=== PATIENT | male | born 1945 | race Caucasian/White ===

== ENCOUNTER 2020-07-08 07:36 | Outpatient (REF) | payer MEDICARE, SELFPAY ==
[2020-07-08 09:37] LABS: OBS Int Ctl Valid YES; OBS1 NEG (NEG); OBS2 NEG (NEG); OBS3 NEG (NEG)
[2020-07-08 10:58] LABS: Leukocytes Stool Qualitative NEGATIVE (NEGATIVE)
== END 2020-07-08 07:37 | disposition home or self-care (01) ==
LOC: HO.LNP 07:36
PROVIDERS: Visit Provider Internal Medicine Gastroenterology
DX: R19.4 Change in bowel habit (principal)
CPT/HCPCS: 82270; 87045; 87046; 89055

== ENCOUNTER → 2020-08-04 13:28 | Outpatient (BNVA) | payer MEDICARE, OTHER, SELFPAY | PROVIDERS: PCP Internal Medicine; Visit Provider Internal Medicine Cardiovascular Disease | DX: I25.10 Atherosclerotic heart disease of native coronary artery without angina pectoris (principal); E78.5 Hyperlipidemia, unspecified; I10 Essential (primary) hypertension; R07.89 Other chest pain; Z79.02 Long term (current) use of antithrombotics/antiplatelets; Z79.899 Other long term (current) drug therapy; Z95.1 Presence of aortocoronary bypass graft | CPT/HCPCS: 93005; 99212 ==

== ENCOUNTER → 2020-10-12 11:01 | Outpatient (BNVA) | payer MEDICARE, OTHER, SELFPAY | PROVIDERS: PCP Internal Medicine; Visit Provider Internal Medicine Cardiovascular Disease | DX: R07.89 Other chest pain (principal); R06.02 Shortness of breath; I25.10 Atherosclerotic heart disease of native coronary artery without angina pectoris; Z95.1 Presence of aortocoronary bypass graft | CPT/HCPCS: 93005; 99212 ==

== ENCOUNTER → 2020-10-17 12:32 | Outpatient (REF) | payer MEDICARE, OTHER, SELFPAY ==
--- NOTE | 2020-10-17 12:38 | CA_ITS ---
Transthoracic Echocardiogram Patient (Last, First, Middle): Fernie Cota L Gender: Male Date of : 1945 Age: 74 Procedure Date: 10/17/2020 Procedure Type: Transthoracic Echocardiogram Location: OP Height: 182.88 cm Weight: 81.65 kg BSA: 2.04 m2 Heart Rate: bpm BP: 132 / 78 mmHg Bar Tender: CALVIN Oden MD: Kevin Durham MD Project Manager Industrial: Kevin Durham MD Symptoms: R06.02 - Shortness of breath Study Quality: Fair ECG Rhythm: Sinus Conclusions: - 1. Normal LV systolic function with grade 1 diastolic dysfunction 2. Normal cardiac valvular Doppler 3. Normal RV systolic pressure 4. No pericardial effusion Findings Left Ventricle Normal left ventricular size, thickness, and systolic function. The visually estimated ejection fraction is between 60-65%. There is paradoxical septal motion consistent with post-operative status. Spectral Doppler is indicative of an impaired relaxation filling pattern. E/E prime ratio is <8, consistent with normal filling pressures. Evidence suggests grade I (mild) diastolic dysfunction. Wall Motion Rest Echo Findings The basal inferior, basal anterolateral, basal inferoseptal, and basal inferolateral segments are hypokinetic. All other scored wall segments showed normal motion. Right Ventricle Normal right ventricular cavity size and systolic function. Atria Both atria are normal in size. There is no evidence of interatrial shunt. Aortic Valve Normal aortic valve structure and function. There is no aortic valve stenosis. There is no aortic valve regurgitation. Mitral Valve Normal mitral valve structure and function. There is trace mitral valve regurgitation. There is no mitral valve stenosis. Pulmonic Valve The pulmonic valve was not well visualized. Tricuspid Valve Likely normal tricuspid valve structure and function. There is trace tricuspid valve regurgitation. The right ventricular systolic pressure is normal. The right ventricular systolic pressure is 20 mmHg. Normal right atrial pressure. There is no evidence of pulmonary hypertension. Great Vessels All visible segments of the aorta are normal in size. The pulmonary artery was not well visualized. Venous The inferior vena cava is normal in size and collapses greater than 50% with inspiration. Pericardium/Pleural There is no evidence of pericardial effusion. Prior Study Comparison No significant change compared to prior study dated: 04/06/2020. Measurements 2D Linear Measurements IVSd: 1.09 0.6-0.9/0.6-1.0 cm LVIDd: 3.81 3.9-5.3/4.2-5.9 cm LVIDd Index: 1.87 2.4-3.2/2.2-3.1 cm/m2 LVIDs: 2.64 2.0-3.6 cm LVPWd: 1.09 0.7-1.1 cm Ao Root: 3.70 2.1-3.5 cm LA Diam: 4.20 2.7-3.8/3.0-4.0 cm LAIDs Index: 2.06 1.5-2.3 cm/m2 LV Mass: 166.00 67-162/88-224 g LV Mass Index: 81.37 43-95/49-115 g/m2 LVOT Diam: 2.20 3.0+(-)1.3 cm 2D Systolic Function EF 4C: 61.20 >55% EF 2C: 66.70 >55% EF BiP: 62.20 >55% Mitral Valve MV Pk E: 0.70 MV PK A: 0.67 MV Decel Time: 387.00 E/A: 1.00 E'Lateral: 10.30 E'Medial: 5.98 E/E' Med: 11.70 E/E' Lat: 6.80 PHT: 113.00 MVA PHT: 1.95 Decel [place]: 1.80 Aortic Valve AoV Pk Leodan: 1.05 AoV Mn Leodan: 0.75 AoV VTI: 0.23 AoV Pk Grad: 4.00 Aov Mn Grad: 2.00 MERE Cont.VTI: 3.59 LVOT LVOT Pk Leodan: 0.98 LVOT Mn Leodan: 0.67 LVOT VTI: 0.22 LVOT Pk Grad: 4.00 LVOT Mn Grad: 2.00 LVOT Diam: 2.20 LVOT Area: 3.80 Diastolic Function MV Pk E: 0.70 MV Pk A: 0.67 E/A: 1.00 E'Medial: 5.98 E/E' Med: 11.70 E' Laterial: 10.30 E/E' Lat: 6.80 Tricuspid Valve TR Pk Leodan: 2.08 TR Pk Grad: 17.00 RA Press: 3.00 RVSP: 20.00 Great Vessels Aorta Ao Root-2D: 3.70 2.0-3.7 cm Ao Asc: 3.50 2.1-3.4 cm Ao Arch: 2.60 Updated in Other Vendor System with Status of Final Kevin Durham MD electronically signed on 10/18/2020 12:29:41 PM with status of Final
== END ==
LOC: HO.CARD 12:32
PROVIDERS: PCP Internal Medicine; Visit Provider Internal Medicine Cardiovascular Disease
DX: R06.02 Shortness of breath (principal); R07.89 Other chest pain; Z95.1 Presence of aortocoronary bypass graft
CPT/HCPCS: 93306

== ENCOUNTER → 2020-10-18 07:37 | Outpatient (REF) | payer MEDICARE, OTHER, SELFPAY ==
--- NOTE | 2020-10-18 08:00 | CA_ITS ---
Acquisition Time: 2020-10-18 09:00:14 Total Exercise Time: 00:04:48 Test Indications: Dyspnea Medications: AMLODIPINE ATORVASTATIN CLOPIDOGREL LEVOTHYROXINE Protocol: SANTA Max HR: 137 BPM 93% of Pred: 147 BPM Max BP: 180/070 mmHG Max Work Load: 5.9 METS exercise stress test using Santa protocol, total of 4 min 48 sec. METS 5.90, TAPHR up to 93 % Pt SOB no other anginal sx. Denies CP. EKG with occ PVC's and PAC's. Scooped ST segments in leads 2 and aVF. Nuclear images to follow. Hypertensive response to exercise. Test reviewed with Dr. Wilson Referred By: Kevin Durham Overread By: Saranya Cheung
--- NOTE | 2020-10-18 08:10 | NM_ITS ---
EXERCISE MYOCARDIAL PERFUSION STUDY INDICATION: Chest pain, shortness of breath, assess for coronary disease and ischemia TECHNIQUE: The patient was brought in for an exercise perfusion study on 10/18/2020. Patient performed exercise as per Joseph protocol and was injected 25 mCi of sestamibi once target heart rate was achieved. Images were obtained using the SPECT gamma camera interlaced with the gating device. Images were obtained in supine position. Resting perfusion study was performed on 10/19/2020. Patient was administered 25 mCi of sestamibi intravenously at rest. Images were then obtained in supine position. Total DLP 61mGy-cm. Images were processed with the software and compared side to side in short axis, horizontal long axis and vertical long axis views. FINDINGS: Raw images were reviewed. The stress perfusion study showed diminished tracer uptake in the distal part of anterior septum. There is also reduced uptake in the basal to mid inferior wall. With CT attenuation correction the distal anteroseptal defect persists. However the inferior defect results completely suggesting diaphragmatic artifact. The gated study shows normal LV systolic function with calculated LVEF of 76%. LV cavity is normal in size. The gated study shows normal wall thickening and contraction of segments. Resting study shows diminished tracer uptake in the distal part of anterior septum. With CT attenuation correction this is more prominent.. Gating at rest reveals normal wall motion with ejection fraction at 75%. The findings are consistent with reversible perfusion defect in the apical part of anterior septum. NM/NM cardiolite stress test IMPRESSION: 1. Myocardial perfusion imaging study shows small area of ischemia in the distal anterior septum near the apex. 2. Gated LVEF is 76% during stress and 75% during rest. 3. Transient ischemic dilatation not present. EKG component of the test reported separately.
== END ==
LOC: HO.CARD 07:37
PROVIDERS: Visit Provider Internal Medicine Cardiovascular Disease
DX: R06.02 Shortness of breath (principal); R07.89 Other chest pain; I25.10 Atherosclerotic heart disease of native coronary artery without angina pectoris; Z95.1 Presence of aortocoronary bypass graft
CPT/HCPCS: 78452; 93017; A9500

== ENCOUNTER → 2020-11-01 12:37 | Outpatient (BNVA) | payer MEDICARE, OTHER, SELFPAY | PROVIDERS: PCP Internal Medicine; Visit Provider Internal Medicine Cardiovascular Disease | DX: R07.89 Other chest pain (principal); I25.10 Atherosclerotic heart disease of native coronary artery without angina pectoris; I10 Essential (primary) hypertension | CPT/HCPCS: 99212 ==

== ENCOUNTER → 2021-01-31 14:39 | Outpatient (BNVA) | payer MEDICARE, OTHER, SELFPAY | PROVIDERS: PCP Internal Medicine; Visit Provider Internal Medicine Cardiovascular Disease | DX: I25.10 Atherosclerotic heart disease of native coronary artery without angina pectoris (principal); I10 Essential (primary) hypertension; R07.89 Other chest pain | CPT/HCPCS: 99212 ==

== ENCOUNTER → 2021-03-09 10:46 | Outpatient (BNVA) | payer MEDICARE, OTHER, SELFPAY | PROVIDERS: PCP Internal Medicine; Visit Provider Internal Medicine Cardiovascular Disease | DX: I25.10 Atherosclerotic heart disease of native coronary artery without angina pectoris (principal); R09.89 Other specified symptoms and signs involving the circulatory and respiratory systems | CPT/HCPCS: 99212 ==

== ENCOUNTER 2021-04-05 12:01 | Outpatient (REF) | payer MEDICARE, OTHER, SELFPAY ==
[2021-04-05 14:40] LABS: Cholesterol 144 mg/dL; HDL Cholesterol 43 mg/dL; LDL Cholesterol Calculated 79 mg/dl; Triglycerides 110 mg/dL
[2021-04-06 16:32] LABS: Transglutaminase IgA 1 U/mL
[2021-04-06 18:56] LABS: Immunoglobulin A 255 mg/dL (70-320)
== END 2021-04-05 12:02 | disposition home or self-care (01) ==
LOC: HO.LAB 12:01
PROVIDERS: PCP Internal Medicine; Referring Provider Internal Medicine Cardiovascular Disease; Visit Provider Internal Medicine Gastroenterology
DX: R19.7 Diarrhea, unspecified (principal); I25.10 Atherosclerotic heart disease of native coronary artery without angina pectoris
CPT/HCPCS: 36415; 80061; 82784; 83516

== ENCOUNTER 2021-04-07 07:06 | Outpatient (REF) | payer MEDICARE, OTHER, SELFPAY ==
[2021-04-07 08:29] LABS: Cholesterol 145 mg/dL; HDL Cholesterol 52 mg/dL; LDL Cholesterol Calculated 77 mg/dl; Triglycerides 84 mg/dL
== END 2021-04-07 07:07 | disposition home or self-care (01) ==
LOC: HO.LAB 07:06
PROVIDERS: PCP Internal Medicine; Visit Provider Internal Medicine Cardiovascular Disease
DX: I25.10 Atherosclerotic heart disease of native coronary artery without angina pectoris (principal)
CPT/HCPCS: 36415; 80061

== ENCOUNTER → 2021-05-18 08:56 | Outpatient (BNVA) | payer MEDICARE, OTHER, SELFPAY | PROVIDERS: PCP Internal Medicine; Referring Provider Internal Medicine; Visit Provider Internal Medicine Cardiovascular Disease ==

== ENCOUNTER 2021-07-24 07:18 | Outpatient (REF) | payer MEDICARE, OTHER, SELFPAY ==
[2021-07-24 09:03] LABS: Alanine Aminotransferase 21 U/L (0-40); Albumin Level 4.5 g/dL (3.5-5.0); Alkaline Phosphatase 50 U/L (39-117); Anion Gap 10 (12-20); Aspartate Amino Transferase 22 U/L (5-37); Bilirubin Total 0.9 mg/dL (0.0-1.0); Blood Urea Nitrogen 17 mg/dL (9-16); Calcium 9.7 mg/dL (8.4-10.2); Carbon Dioxide 28 mmol/L (22-29); Chloride 109 mmol/L (96-108); Cholesterol 113 mg/dL; Estimated Glomerular Filt Rate > 60; Glucose Fasting 114 mg/dL (60-99); HDL Cholesterol 44 mg/dL; LDL Cholesterol Calculated 57 mg/dl; Potassium 4.4 mmol/L (3.3-5.1); Sodium 143 mmol/L (135-145); Total Protein 7.3 g/dL (6.5-8.0); Triglycerides 60 mg/dL
== END 2021-07-24 07:19 | disposition home or self-care (01) ==
LOC: HO.LAB 07:18
PROVIDERS: PCP Internal Medicine; Visit Provider Nurse Practitioner Family
DX: E78.5 Hyperlipidemia, unspecified (principal); I10 Essential (primary) hypertension
CPT/HCPCS: 36415; 80053; 80061

== ENCOUNTER → 2021-08-01 14:42 | Outpatient (BNVA) | payer MEDICARE, OTHER, SELFPAY | PROVIDERS: PCP Internal Medicine; Referring Provider Internal Medicine; Visit Provider Internal Medicine Cardiovascular Disease | DX: I25.10 Atherosclerotic heart disease of native coronary artery without angina pectoris (principal); I10 Essential (primary) hypertension; E78.5 Hyperlipidemia, unspecified; Z95.1 Presence of aortocoronary bypass graft; Z88.2 Allergy status to sulfonamides; Z79.899 Other long term (current) drug therapy | CPT/HCPCS: 99212 ==

== ENCOUNTER → 2022-02-01 13:47 | Outpatient (BNVA) | payer MEDICARE, OTHER, SELFPAY | PROVIDERS: PCP Internal Medicine; Referring Provider Internal Medicine; Visit Provider Internal Medicine Cardiovascular Disease | DX: I25.10 Atherosclerotic heart disease of native coronary artery without angina pectoris (principal); I10 Essential (primary) hypertension | CPT/HCPCS: 93005; 99212 ==

== ENCOUNTER 2022-04-28 03:03 | Emergency (ER) | payer MEDICARE, OTHER, SELFPAY ==
--- NOTE | ~2022-04-28 | CT_ITS ---
EXAMINATION: CT ABDOMEN AND PELVIS WITHOUT CONTRAST CLINICAL INFORMATION: Lower abdominal pain. History of diverticulitis. COMPARISON: 03/26/2016 TECHNIQUE: Multidetector volumetric imaging was performed from the superior aspect of the liver through the pubic symphysis. Sagittal and coronal reformatted images were obtained on the technologist's workstation. This CT examination was performed using dose optimization techniques as appropriate, variously including the following: *Automated exposure control *Adjustment of mA and/or kV according to patient size (this includes techniques or standardized protocols for targeted exams where dose is matched to indication/reason for exam; i.e. extremities or head) *Use of iterative reconstruction technique Fleischner Society guidelines are followed, if deemed appropriate. DLP: 559 mGy-cm FINDINGS: LUNG BASES: A few old small calcified and noncalcified pulmonary nodules are detected in the visualized bases, consistent with benign nodules. No follow-up recommended. A few linear opacities of scarring or atelectasis are present in the bases. Atherosclerotic calcification of the visualized thoracic aorta and coronary arteries. No pericardial or pleural effusion. LIVER: The liver has normal size, shape, and attenuation. No evidence of liver mass. GALLBLADDER AND BILIARY TREE: Gallbladder is without radiopaque stones, wall thickening or pericholecystic fluid. No dilated bile ducts. PANCREAS: Normal. No edema, pancreatic ductal dilatation or mass. SPLEEN: Normal. ADRENAL GLANDS: Normal. KIDNEYS AND URETERS: The kidneys have normal size and cortical thickness. No perinephric fluid collection. No urolithiasis or hydroureteronephrosis. 1.5 cm simple cyst of the left kidney. No renal imaging follow-up is recommended for a simple cyst. BLADDER: The bladder is underdistended. No bladder calculi. BOWEL AND PERITONEUM: No dilated bowel loops. Again noted are appendicoliths but no evidence of appendicitis. There are diverticula of the colon. Mild mesenteric fat stranding is observed around diverticula of the sigmoid colon. Findings are consistent with acute diverticulitis. No abdominal abscess or free air. Trace free fluid is present in the pelvis. ABDOMINAL WALL: A reservoir for a penile device has a collapsed appearance as it projects deep to the right lower abdominal wall. VASCULATURE: Atherosclerosis of the abdominal aorta without aneurysm. LYMPH NODES: No pathologic sized lymph nodes in the abdomen or pelvis. No inguinal lymphadenopathy. PELVIC VISCERA: Prior prostatectomy. 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 Schmorl's nodes noted at multiple levels of the degenerated spine. Multiple level disc space loss, vacuum disc phenomenon and osteophyte formation. Mild degenerative anterolisthesis at L3-L4. No suspicious bone lesions. CT/CT abdomen pelvis wo con IMPRESSION: * Acute diverticulitis of the sigmoid colon. * Trace free fluid is present within the pelvis. No abscess.
--- NOTE | 2022-04-28 03:21 | ECG_ITS ---
Test Reason : abd pain Blood Pressure : / mmHG Vent. Rate : 073 BPM Atrial Rate : 073 BPM P-R Int : 200 ms QRS Dur : 100 ms QT Int : 382 ms P-R-T Axes : 065 -34 050 degrees QTc Int : 420 ms Normal sinus rhythm Left axis deviation Minimal voltage criteria for LVH, may be normal variant ( [place] product ) Abnormal ECG When compared with ECG of 11-FEB-2020 10:02, Non-specific change in ST segment in Anterior leads T wave inversion no longer evident in Anterior leads Referred By: Hanna Barber Electronically Signed By:Jeff Maurice
[2022-04-28 03:37] LABS: MANUAL DIFF FLAG NO
[2022-04-28 03:38] LABS: Basophils Percent Auto 0.3 % (0-2); Eosinophils Absolute Auto 0.5 X10*3/uL (0.0-0.4); Eosinophils Percent Auto 3.6 % (0-4); Hematocrit 40.9 % (42.0-52.0); Hemoglobin 14.5 g/dl (14.0-18.0); Imm Gran Abs Auto 0.04 X10*3/uL (0.00-0.03); Imm Gran Pct Auto 0.3 % (0.0-0.4); Lymphocytes Absolute Auto 1.2 X10*3/uL (1.2-4.9); Lymphocytes Percent Auto 9.5 % (20-40); Mean Corpuscular HGB Conc 35.5 g/dl (31.0-36.0); Mean Corpuscular Hemoglobin 32.6 pg (27.0-33.0); Mean Corpuscular Volume 91.9 fL (80.0-98.0); Mean Platelet Volume 8.8 fL (9.4-12.4); Monocytes Absolute Auto 0.8 X10*3/uL (0.1-1.2); Neutrophils Absolute Auto 10.4 x10*3/uL (2.0-8.3); Neutrophils Percent Auto 80.3 % (45-73); Platelet Count 181 X10*3/uL (160-400); Red Blood Count 4.45 X10*6/uL (4.60-5.80); Red Cell Distribution Width 12.7 % (11.0-16.0); White Blood Count 12.9 X10*3/uL (4.8-10.8)
[2022-04-28 03:52] LABS: COVID-19 Test Negative (Negative)
[2022-04-28 03:57] LABS: Troponin-I High Sensitivity 3.6 ng/L (<3.5-35.0)
[2022-04-28 03:59] LABS: Alanine Aminotransferase 15 U/L (0-40); Albumin Level 4.2 g/dL (3.5-5.0); Alkaline Phosphatase 51 U/L (39-117); Anion Gap 11 (12-20); Aspartate Amino Transferase 18 U/L (5-37); Bilirubin Direct 0.6 mg/dL (0.0-0.5); Bilirubin Total 1.4 mg/dL (0.0-1.0); Blood Urea Nitrogen 13 mg/dL (9-16); Carbon Dioxide 23 mmol/L (22-29); Chloride 106 mmol/L (96-108); Estimated Glomerular Filt Rate > 60; Glucose Random 133 mg/dL (60-115); Lipase 17 U/L (8-78); Magnesium 1.8 mg/dL (1.6-2.6); Potassium 3.6 mmol/L (3.3-5.1); Sodium 136 mmol/L (135-145); Total Protein 7.1 g/dL (6.5-8.0)
[2022-04-28 04:04] VITALS: BP 150/78; PULSE 67; RESP 15; TEMP 36.3; O2SAT 96; BMI 23.7
[2022-04-28 08:55] VITALS: BP 164/74; PULSE 69; RESP 16; O2SAT 97
--- NOTE | 2022-04-28 10:13 | ED_ITS ---
HPI - Abdominal Pain General Chief Complaint: Abdominal Pain Stated Complaint: Abd pain Time Seen by Provider: 04/28/22 03:21 Source: patient Mode of arrival: ambulatory Limitations: no limitations History of Present Illness HPI narrative: 76-year-old male with a past medical history of coronary artery disease status post triple bypass February 2020, hypertension, hyperlipidemia, presenting for 1 week of lower abdominal pain that got much worse early this morning at 03:00. Patient states that at 03:00 this morning the pain was a 10/10 and he felt gassy. he was able to pass gas. The pain felt like a rag twisting in his lower abdomen. Patient states the pain is not so bad now more like a 4/10. Patient states his last bowel movement was 2 days ago. He normally has bowel movements twice a day. Patient's last normal bowel movement was 2 days ago, he took a stool softener because he thought he might be constipated, patient only had a small amount of stool after stool softener. Past surgeries include bypass and prostatectomy, denies other abdominal surgeries. Patient does have a history of diverticulitis. No fevers, no nausea, no vomiting, no diarrhea. Patient has no chest pain, no shortness of breath. Denies bloody, dark, or tarry stools. Denies syncope, hematuria, dysuria, urinary frequency, urgency MD elicited complaint: abdominal pain Pertinent past history: diverticulitis and myocardial infarction Onset (ago): hour(s) (7) Pain Consistency: constant Location: other (lower abdomen) Severity: moderate Pain scale (0-10): 4 Quality: stabbing Radiation: none Migration to: no migration Relieving factors: other (sitting up) Associated symptoms: denies other symptoms Related Data Home Medications Medication Instructions Recorded Confirmed aspirin 81 mg tablet,delayed 81 mg PO DAILY 08/04/20 02/01/22 release (Adult Low Dose Aspirin) calcium carbonate 333 mg-magnesium tab PO 08/04/20 02/01/22 oxide 133 mg-zinc gluc 5 mg tablet cholecalciferol (vitamin D3) 25 25 mcg PO DAILY 08/04/20 02/01/22 mcg (1,000 unit) capsule coenzyme Q10 100 mg capsule 100 mg PO DAILY 08/04/20 02/01/22 (CoQ-10) glucosamine 750 ys-mjfzeouwb-qct tab PO 08/04/20 02/01/22 no.7 644 mg-vit A-amlhga-blisx tablet multivitamin (Daily Multi-Vitamin 1 tab PO DAILY 08/04/20 02/01/22 tablet) antiox.multivit 10-pcefy8u 280 cap PO 01/31/21 02/01/22 mg-lutein 10 mg-zeaxanthin 2 mg capsule cinnomin bark PO 07/06/21 02/01/22 levothyroxine 100 mcg tablet 100 mcg PO DAILY 02/01/22 02/01/22 omega-3 fatty acids 1,000 mg 2,000 mg PO DAILY 02/01/22 02/01/22 capsule Previous Rx's Medication Instructions Recorded ezetimibe 10 mg tablet (Zetia) 10 mg PO DAILY 90 days #90 tabs 09/26/21 amlodipine 5 mg tablet (Norvasc) 5 mg PO DAILY HTN #90 tabs 01/12/22 atorvastatin 40 mg tablet 40 mg PO DAILY #90 tabs 02/05/22 metoprolol succinate 25 mg 25 mg PO DAILY 90 days #90 tabs 03/21/22 tablet,extended release 24 hr isosorbide mononitrate 30 mg 30 mg PO DAILY #90 tabs 04/23/22 tablet,extended release 24 hr ciprofloxacin HCl 500 mg tablet 500 mg PO BID 7 days #14 tabs 04/28/22 (Cipro) metronidazole 500 mg tablet 500 mg PO TID 10 days #30 tabs 04/28/22 Allergies Allergy/AdvReac Type Severity Reaction Status Date / Time Sulfa (Sulfonamide Allergy Unknown UNKNOWN Verified 07/06/21 11:07 Antibiotics) [SULFA (SULFONAMIDE ANTIBIOTICS)] Sulfa Allergy Mild sinus Uncoded 07/06/21 11:07 problems Review of Systems Constitutional: Denies body ache(s), Denies chills, Denies fatigue, Denies fever(s), Denies headache(s), Denies malaise and Denies weakness Eyes: Denies diplopia Denies vertigo, Denies dizziness, Denies otalgia, Denies headache(s), Denies mouth pain, Denies post nasal drip, Denies sinus pain, Denies sinus pressure, Denies sore throat and Denies throat swelling Cardiovascular: Denies chest pain, Denies syncope, Denies leg edema, Denies lightheadedness, Denies Loss of Consciousness, Denies palpitations and Denies dyspnea Respiratory: Denies chest congestion, Denies cough and Denies dyspnea Gastrointestinal: Reports abdominal pain, Denies melena, Denies hematochezia, Reports change in stool character, Denies coffee ground emesis, Reports GI cramping, Denies diarrhea, Denies nausea and Denies vomiting Genitourinary: Denies hematuria, Denies dysuria, Denies flank pain, Denies urinary incontinence and Denies urinary urgency Musculoskeletal: Reports no additional musculoskeletal complaints and Denies back pain Denies confusion, Denies vertigo, Denies dizziness, Denies syncope, Denies headache(s) and Denies weakness Psychiatric: Denies anxiety, Denies confusion and Denies depression Endocrine: Denies fatigue and Denies palpitations Allergic/Immunologic: Denies throat swelling PMFSH Past Medical History Medical History CAD (coronary artery disease) HTN (hypertension) Hyperlipidemia Surgical History History of ankle surgery History of carpal tunnel release Hx of cardiac cath Hx of colonoscopy Hx of tonsillectomy S/P CABG x 3 Family History Family History Father CVD (cardiovascular disease) Mother No problems noted. Social History Social History Alcohol intake: never Patient Tobacco Use Status: Never used Tobacco Use of substances other than those prescribed or required for medical reasons: No Advance Directives: No Advance Directives Information Provided: Yes Physical Exam ED Vital Signs: Vital Signs - 24 hr 04/28/22 04:04 04/28/22 08:55 04/28/22 12:00 Temperature 97.3 F 97.1 F Pulse Rate 67 69 72 Respiratory Rate 15 16 16 Blood Pressure 150/78 H 164/74 H 164/77 H Pulse Oximetry 96 97 96 Oxygen Delivery Method Room Air Room Air Room Air BMI result Body Mass Index 23.7 Const General: No confusion Nutritional Appearance: well nourished Orientation/consciousness: No confusion Limitations: no limitations Eyes Conjunctivae: conjunctivae normal Pupils: Equal, round and reactive pupils present EOM: EOMs intact bilaterally Neck Neck: Yes full ROM, Yes no lymphadenopathy and Yes supple Resp Effort & Inspection: normal respiratory effort and able to speak in complete sentences Auscultation: clear to auscultation bilaterally, no crackles, no rales, no rhonchi and no wheezes Cardio Rate: regular rate Rhythm: regular rhythm Heart sounds: S1 normal heart sound present and S2 normal heart sound present GI Inspection: Yes normal to inspection Palpation (GI): Soft to palpation, Tenderness to palpation present (GI) in the LLQ and in the RLQ, Guarding due to palpation present (GI) in the LLQ and in the RLQ, not rigid and no hernias Percussion: Yes normal to percussion Auscultation: normal bowel sounds Rectal Exam - Male: Yes deferred General: Yes no CVA tenderness Back/Spine/Pelvis Back: no CVA tenderness Skin General skin exam: no rashes or lesions noted Neuro General: No confusion Cranial nerves: Yes Equal, round and reactive pupils present Extrem General: Yes normal to inspection and Yes full ROM Psych Appearance: grossly normal Affect: normal affect Attitude: cooperative Thought process: Normal thought process present Course Course Course Narrative: 76-year-old male presents for 1 week of low abdominal pain. Patient has had change in his stool pattern, has not had a normal bowel movement for 2 days, normally stools twice a day. Labs show elevated white blood cell count at 12.9 with a left shift, bili 1.4, creatinine is normal at 0.83, lipase is not elevated, COVID negative, magnesium 1.8. EKG shows no acute ischemia 1st troponin is 3.6, will repeat due to patient's coronary artery disease. Will get urine, CT scan, re-evaluate. Patient does not want pain meds, as pain is not as bad as it was earlier. Reevaluation(s) Reevaluation #1: CT/CT abdomen pelvis wo con IMPRESSION: *? Acute diverticulitis of the sigmoid colon. *? Trace free fluid is present within the pelvis. No abscess. repeat troponin is 4.7, which is not a delta change from initial troponin at 3.6. Patient has a negative urine, will send home on Cipro and Flagyl, follow- up with gastroenterology gave return precautions of chest pain, shortness of breath, worsening abdominal pain, fevers, back pain, return to the emergency room. All patient's questions were answered, patient verbalized agreement understanding of the plan ? MDM - Abdominal Pain Lab Data Result diagrams: 04/28/22 03:32 04/28/22 03:32 Labs: Lab Results 04/28/22 04/28/22 04/28/22 Range/Units 03:32 03:32 03:32 WBC 12.9 H (4.8-10.8) X10*3/uL RBC 4.45 L (4.60-5.80) X10*6/uL Hgb 14.5 (14.0-18.0) g/dl Hct 40.9 L (42.0-52.0) % MCV 91.9 (80.0-98.0) fL MCH 32.6 (27.0-33.0) pg MCHC 35.5 (31.0-36.0) g/dl RDW 12.7 (11.0-16.0) % Plt Count 181 (160-400) X10*3/uL MPV 8.8 L (9.4-12.4) fL Immature Gran % (Auto) 0.3 (0.0-0.4) % Neut % (Auto) 80.3 H (45-73) % Lymph % (Auto) 9.5 L (20-40) % [place] % (Auto) 6.0 (2-11) % Eos % (Auto) 3.6 (0-4) % Baso % (Auto) 0.3 (0-2) % Lymph # (Auto) 1.2 (1.2-4.9) X10*3/uL [place] # (Auto) 0.8 (0.1-1.2) X10*3/uL Eos # (Auto) 0.5 H (0.0-0.4) X10*3/uL Baso # (Auto) 0.0 (0.0-0.2) X10*3/uL Abs Immat Gran (auto) 0.04 H (0.00-0.03) X10*3/uL Absolute Neuts (auto) 10.4 H (2.0-8.3) x10*3/uL Absolute Nucleated RBC 0.000 (0.0-0.012) X10*3/uL Nucleated RBC % (auto) 0.0 (0.0-0.2) /100WBC Sodium 136 (135-145) mmol/L Potassium 3.6 (3.3-5.1) mmol/L Chloride 106 (96-108) mmol/L Carbon Dioxide 23 (22-29) mmol/L Anion Gap 11 L (12-20) BUN 13 (9-16) mg/dL Creatinine 0.83 (0.5-1.4) mg/dL Estim Creat Clear Calc TNP Estimated GFR > 60 Random Glucose 133 H (60-115) mg/dL Calcium 9.0 D (8.4-10.2) mg/dL Magnesium 1.8 (1.6-2.6) mg/dL Total Bilirubin 1.4 H (0.0-1.0) mg/dL Direct Bilirubin 0.6 H (0.0-0.5) mg/dL AST 18 (5-37) U/L ALT 15 (0-40) U/L Alkaline Phosphatase 51 (39-117) U/L Troponin I High Sens 3.6 (<3.5-35.0) ng/L Total Protein 7.1 (6.5-8.0) g/dL Albumin 4.2 (3.5-5.0) g/dL Lipase 17 (8-78) U/L Urine Color Urine Appearance Urine pH (5.0-8.0) Ur Specific [place] (1.005-1.025) Urine Protein (NEG-TRACE) MG/DL Urine Glucose (UA) (NEG) MG/DL Urine Ketones (NEG) MG/DL Urine Blood (NEG) Urine Nitrite (NEG) Ur Leukocyte Esterase (NEG) Urine RBC (0) /HPF Urine WBC (0-4) /HPF Ur Squamous Epith Cells /LPF Urine Bacteria /LPF COVID-19 (PIPO) (Negative) COVID-19 Clin Com 04/28/22 04/28/22 04/28/22 Range/Units 03:32 12:07 12:08 WBC (4.8-10.8) X10*3/uL RBC (4.60-5.80) X10*6/uL Hgb (14.0-18.0) g/dl Hct (42.0-52.0) % MCV (80.0-98.0) fL MCH (27.0-33.0) pg MCHC (31.0-36.0) g/dl RDW (11.0-16.0) % Plt Count (160-400) X10*3/uL MPV (9.4-12.4) fL Immature Gran % (Auto) (0.0-0.4) % Neut % (Auto) (45-73) % Lymph % (Auto) (20-40) % [place] % (Auto) (2-11) % Eos % (Auto) (0-4) % Baso % (Auto) (0-2) % Lymph # (Auto) (1.2-4.9) X10*3/uL [place] # (Auto) (0.1-1.2) X10*3/uL Eos # (Auto) (0.0-0.4) X10*3/uL Baso # (Auto) (0.0-0.2) X10*3/uL Abs Immat Gran (auto) (0.00-0.03) X10*3/uL Absolute Neuts (auto) (2.0-8.3) x10*3/uL Absolute Nucleated RBC (0.0-0.012) X10*3/uL Nucleated RBC % (auto) (0.0-0.2) /100WBC Sodium (135-145) mmol/L Potassium (3.3-5.1) mmol/L Chloride (96-108) mmol/L Carbon Dioxide (22-29) mmol/L Anion Gap (12-20) BUN (9-16) mg/dL Creatinine (0.5-1.4) mg/dL Estim Creat Clear Calc Estimated GFR Random Glucose (60-115) mg/dL Calcium (8.4-10.2) mg/dL Magnesium (1.6-2.6) mg/dL Total Bilirubin (0.0-1.0) mg/dL Direct Bilirubin (0.0-0.5) mg/dL AST (5-37) U/L ALT (0-40) U/L Alkaline Phosphatase (39-117) U/L Troponin I High Sens 4.7 (<3.5-35.0) ng/L Total Protein (6.5-8.0) g/dL Albumin (3.5-5.0) g/dL Lipase (8-78) U/L Urine Color YELLOW Urine Appearance CLEAR Urine pH 5.5 (5.0-8.0) Ur Specific [place] >= 1.030 H (1.005-1.025) Urine Protein NEG (NEG-TRACE) MG/DL Urine Glucose (UA) NEG (NEG) MG/DL Urine Ketones 5 (NEG) MG/DL Urine Blood TRACE (NEG) Urine Nitrite NEG (NEG) Ur Leukocyte Esterase NEG (NEG) Urine RBC 0-2 (0) /HPF Urine WBC 0 (0-4) /HPF Ur Squamous Epith Cells TRACE /LPF Urine Bacteria NONE /LPF COVID-19 (PIPO) Negative (Negative) COVID-19 Clin Com See Note ECG Data Interpretation: Sinus at a rate of 73, PA interval 200, QRS 100, QTC 420, left axis deviation, no ST depression or elevation, no Wellens per Dr Cox who looked at this EKG Discharge Plan Discharge Clinical Impression: Diverticulitis Instructions: Diverticulitis (ED), Diverticulitis Diet (ED) Additional Instructions: you have diverticulitis. Please take the 2 antibiotics I have prescribed for you. Please return if you have worsening pain, fevers, bloody stool, chest pain, shortness of breath. 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 If you do not hear from by Saturday afternoon please call him at the following number [phone] please push fluids, and have a clear liquid diet for a day or 2, then transition to a low-fiber diet, as outlined in the diverticulitis diet handout included in this discharge packet Prescriptions: New metronidazole 500 mg tablet 500 mg PO TID 10 Days Qty: 30 0RF ciprofloxacin HCl [Cipro] 500 mg tablet 500 mg PO BID 7 Days Qty: 14 0RF No Action ezetimibe [Zetia] 10 mg tablet 10 mg PO DAILY 90 Days Qty: 90 2RF amlodipine [Norvasc] 5 mg tablet 5 mg PO DAILY Qty: 90 3RF atorvastatin 40 mg tablet 40 mg PO DAILY Qty: 90 3RF metoprolol succinate 25 mg tablet extended release 24 hr 25 mg PO DAILY 90 Days Qty: 90 3RF isosorbide mononitrate 30 mg tablet extended release 24 hr 30 mg PO DAILY Qty: 90 0RF cinnomin bark 500 mg PO aspirin [Adult Low Dose Aspirin] 81 mg tablet,delayed release (DR/EC) 81 mg PO DAILY calcium carb-mag ox-zinc gluc 333-133-5 mg tablet PO coenzyme Q10 [CoQ-10] 100 mg capsule 100 mg PO DAILY cholecalciferol (vitamin D3) 25 mcg (1,000 unit) capsule 25 mcg PO DAILY multivitamin [Daily Multi-Vitamin] Tablet 1 tab PO DAILY [id number]-D-vawj-boron 727-128-14-1-3 mg tablet PO antiox. no.[id number]-[id number]-dkx 280-10-2 mg capsule PO omega-3 fatty acids 1,000 mg capsule 2,000 mg PO DAILY levothyroxine 100 mcg tablet 100 mcg PO DAILY Referrals: Sammie Aburto MD [Physician] -
[2022-04-28 12:00] VITALS: BP 164/77; PULSE 72; RESP 16; TEMP 36.2; O2SAT 96
[2022-04-28] MEDS: amLODIPine Besylate 5 MG TABLET PO (12:03)
[2022-04-28] MEDS: Ezetimibe 10 MG TABLET PO (12:03)
[2022-04-28] MEDS: Metoprolol Succinate ER 25 MG TAB.ER.24H PO (12:04)
[2022-04-28] MEDS: Isosorbide Mononitrate 30 MG TAB.ER.24H PO (12:04)
[2022-04-28 12:18] LABS: Appearance Urine CLEAR; Color Urine YELLOW; Glucose Urine UA NEG (NEG); Leukocyte Esterase Urine NEG (NEG); Nitrite Urine NEG (NEG); PH 5.5 (5.0-8.0); Specific Gravity - Urine >= 1.030 (1.005-1.025); UACC Culture Trigger NO; Urine Blood TRACE (NEG); Urine Ketones 5 MG/DL (NEG); Urine Protein NEG (NEG-TRACE)
[2022-04-28 12:46] LABS: Troponin-I High Sensitivity 4.7 ng/L (<3.5-35.0)
[2022-04-28 12:56] LABS: RBC Urine 0-2 /HPF (0); Squamous Epithelial Cell Urine TRACE /LPF; WBC Urine 0 /HPF (0-4)
== END 2022-04-28 13:36 | disposition home or self-care (01) ==
PROVIDERS: Emergency Medicine; Physician Assistant; Emergency Provider Student in an Organized Health Care Education/Training Program; PCP Internal Medicine
DX: K57.32 Diverticulitis of large intestine without perforation or abscess without bleeding (principal); R10.30 Lower abdominal pain, unspecified; Z20.822 Contact with and (suspected) exposure to COVID-19; I10 Essential (primary) hypertension; E78.5 Hyperlipidemia, unspecified; Z79.82 Long term (current) use of aspirin; Z79.02 Long term (current) use of antithrombotics/antiplatelets; Z79.899 Other long term (current) drug therapy
CPT/HCPCS: 36415; 74176; 80048; 80076; 81001; 83690; 83735; 84484; 85025; 87635; 93005; 99284

== ENCOUNTER 2022-10-20 09:02 | Emergency (ER) | payer MEDICARE, OTHER, SELFPAY ==
[2022-10-20] VITALS (7 sets, daily range): BP systolic 105–132; BP diastolic 54–65; PULSE 54–75; RESP 16–18; TEMP 36.2; O2SAT 93–98; BMI 23.8
--- NOTE | ~2022-10-20 | XR_ITS ---
EXAMINATION: XR CHEST CLINICAL INFORMATION: SOB. COMPARISON: Chest x-ray 02/11/2020 TECHNIQUE: Frontal view of the chest was obtained. FINDINGS: There is no acute intra-axial, extra-axial bleed, masses or midline shift. Minimal atelectatic changes are seen left lung base. The heart size and pulmonary vascularity is normal. There are median sternotomy sutures from previous intervention. XR/XR chest 1V IMPRESSION: Minimal atelectatic changes left lung base. No acute process seen.
--- NOTE | ~2022-10-20 | CT_ITS ---
EXAMINATION: CT HEAD WITHOUT CONTRAST CLINICAL INFORMATION: Dizziness, off balance. COMPARISON: None TECHNIQUE: Contiguous axial imaging was performed from the skull base to vertex without intravenous administration of contrast. This CT examination was performed using dose optimization techniques as appropriate, variously including the following: *Automated exposure control *Adjustment of mA and/or kV according to patient size (this includes techniques or standardized protocols for targeted exams where dose is matched to indication/reason for exam; i.e. extremities or head) *Use of iterative reconstruction technique DLP: 641 mGy-cm FINDINGS: There is no acute intra-axial, extra-axial bleed, masses or midline shift. There is no acute infarction in evolution. There is no edema. The dhaliwal to white matter differentiation is maintained normal. The lateral ventricles are symmetrical in size and configuration without enlargement. No abnormality seen in the posterior fossa. Bone windows reveal no calvarial abnormality. There is no scalp soft tissue abnormality. Bilateral paranasal sinuses and mastoid air cells are well-aerated. CT/CT head/brain wo IV con IMPRESSION: No acute intracranial process seen.
--- NOTE | 2022-10-20 09:12 | ECG_ITS ---
Test Reason : Dyspnea Blood Pressure : / mmHG Vent. Rate : 059 BPM Atrial Rate : 059 BPM P-R Int : 214 ms QRS Dur : 096 ms QT Int : 408 ms P-R-T Axes : 063 -31 048 degrees QTc Int : 403 ms Poor data quality, interpretation may be adversely affected Sinus bradycardia with 1st degree A-V block Left axis deviation Abnormal ECG When compared to the previous EKG of No significant changes seen Referred By: Sara Yarbrough Electronically Signed By:Jeff Maurice
--- NOTE | 2022-10-20 09:21 | ED.GENADULT ---
HPI - General Adult General Chief complaint: Dyspnea Stated complaint: tremors, shortness of breath Time Seen by Provider: 10/20/22 09:12 Source: patient and old records reviewed Mode of arrival: ambulatory Limitations: no limitations History of Present Illness HPI narrative: 76 yo male with history of CAD s/p CABG x3, HTN, HLD, diverticulitis, hypothyroidism who presents to the ER from home c/o intermittent chest pains, dizziness, and SOB that started yesterday. Patient reports that when he was going for his usual 3 mile morning walk he had a few occurrences of brief, sharp, pin prick left sided chest pains that were non-radiating and lasted about 10 seconds. He also reports intermittent episodes of lightheadness and dizziness, rates at a 1-2 on a scale of 10. He also endorses intermittent, mild SOB that is not associated with the chest pain. No recurrent episodes of chest pain since yesterday morning. He took his BP this morning and it was 190/90. Soon after taking his meds it improved to 140/80. He developed some tremors of his hands and right leg this morning, now resolved. Thinks it might have to do with being in the cold on the way here. All symptoms currently resolved. He admits to anxiety. MD complaint: CP, SOB, dizzy, tremors. Onset (ago): day(s) Location: chest Radiation: non-radiation Severity: mild Severity scale (1-10): 3 Quality: sharp Pain Consistency: now resolved Relieving factors: none Exacerbating factors: none Associated symptoms: chest pain and shortness of breath Treatments prior to arrival: none Related Data Home Medications Medication Instructions Recorded Confirmed aspirin 81 mg tablet,delayed 81 mg PO DAILY 08/04/20 02/01/22 release (Adult Low Dose Aspirin) calcium carbonate 333 mg-magnesium tab PO 08/04/20 02/01/22 oxide 133 mg-zinc gluc 5 mg tablet cholecalciferol (vitamin D3) 25 25 mcg PO DAILY 08/04/20 02/01/22 mcg (1,000 unit) capsule coenzyme Q10 100 mg capsule 100 mg PO DAILY 08/04/20 02/01/22 (CoQ-10) glucosamine 750 me-kiyjrvtvd-nvs tab PO 08/04/20 02/01/22 no.7 644 mg-vit X-xhvkbe-pqlst tablet multivitamin (Daily Multi-Vitamin 1 tab PO DAILY 08/04/20 02/01/22 tablet) antiox.multivit 10-twdqf6l 280 cap PO 01/31/21 02/01/22 mg-lutein 10 mg-zeaxanthin 2 mg capsule cinnomin bark PO 07/06/21 02/01/22 levothyroxine 100 mcg tablet 100 mcg PO DAILY 02/01/22 02/01/22 omega-3 fatty acids 1,000 mg 2,000 mg PO DAILY 02/01/22 02/01/22 capsule Previous Rx's Medication Instructions Recorded amlodipine 5 mg tablet (Norvasc) 5 mg PO DAILY HTN #90 tabs 01/12/22 atorvastatin 40 mg tablet 40 mg PO DAILY #90 tabs 02/05/22 metoprolol succinate 25 mg 25 mg PO DAILY 90 days #90 tabs 03/21/22 tablet,extended release 24 hr ciprofloxacin HCl 500 mg tablet 500 mg PO BID 7 days #14 tabs 04/28/22 (Cipro) metronidazole 500 mg tablet 500 mg PO TID 10 days #30 tabs 04/28/22 ezetimibe 10 mg tablet 10 mg PO DAILY #90 tabs 06/18/22 isosorbide mononitrate 30 mg 30 mg PO DAILY #90 tabs 07/13/22 tablet,extended release 24 hr Allergies Allergy/AdvReac Type Severity Reaction Status Date / Time Sulfa (Sulfonamide Allergy Unknown UNKNOWN Verified 07/06/21 11:07 Antibiotics) [SULFA (SULFONAMIDE ANTIBIOTICS)] atorvastatin [From Lipitor] Allergy Unknown Verified 10/20/22 09:09 Sulfa Allergy Mild sinus Uncoded 07/06/21 11:07 problems Review of Systems Review of Systems: Yes all other systems are reviewed and are negative [facility] Past Medical History Medical History CAD (coronary artery disease) HTN (hypertension) Hyperlipidemia Surgical History History of ankle surgery History of carpal tunnel release Hx of cardiac cath Hx of colonoscopy Hx of tonsillectomy S/P CABG x 3 Family History Family History Father CVD (cardiovascular disease) Mother No problems noted. Social History Social History Alcohol intake: never Patient Tobacco Use Status: Never used Tobacco Smoked in Last 30 Days: No Advance Directives: No Physical Exam ED Vital Signs: Vital Signs - 24 hr 10/20/22 09:06 10/20/22 09:15 10/20/22 09:42 Temperature 97.1 F Pulse Rate 56 60 59 Respiratory Rate 18 16 Blood Pressure 132/65 120/54 L 116/55 L Pulse Oximetry 98 97 Oxygen Delivery Method Room Air Room Air 10/20/22 09:43 10/20/22 09:45 10/20/22 10:44 Temperature Pulse Rate 60 75 54 Respiratory Rate 17 Blood Pressure 105/64 113/64 106/59 L Pulse Oximetry 93 Oxygen Delivery Method Room Air 10/20/22 11:30 Temperature Pulse Rate 64 Respiratory Rate 18 Blood Pressure 111/58 L Pulse Oximetry 95 Oxygen Delivery Method Room Air BMI result Body Mass Index 23.8 Appearance: Alert. Oriented X3. No acute distress. Eyes: Pupils equal, round and reactive to light. ENT: Pharynx normal. Normal TMs bilaterally. Neck: Normal inspection. Neck supple. CVS: Normal heart rate and rhythm. Pulses normal. Respiratory: No respiratory distress. Breath sounds normal. Abdomen: Soft and nontender. +BS x4 Skin: Skin warm and dry. Normal skin color. Normal skin turgor. No rashes. Extremities: No lower extremity edema. Normal inspection x4. No resting tremor. Neuro: Oriented X 3. No motor deficit. No sensory deficit. Nonfocal. Steady gait. Normal speech and cognition. Course Course Course Narrative: 76 yo male presenting to the ER for evaluation of a few brief episodes of pin prick chest pains that occurred on his walk yesterday along with intermittent and now resolved SOB, dizziness and tremors. He is anxious. VSS and physical exam unremarkable. Will get EKG, labs, CT head given his reports of dizziness and feeling off balance. NIH 0. Reevaluation(s) Reevaluation #1: Troponin less than 3.5. All other lab work is unremarkable. He remains hemodynamically stable. Orthostatics were negative. He remains chest pain-free, shortness of breath free and dizziness free. Viral swabs negative. His blood pressure here is 100-1 teens systolic. He reports that was as high as 190 at home. This labile fluctuation could attribute to some of his symptoms. He will start to closely monitor his blood pressure at home. He does have a history of ?labile blood pressure ?according to his medical record. At this time comfortable discharge home with patient to follow-up with his PCP. We discussed return precautions. Comfortable DC home Medical Decision Making Medical Decision Making [facility] Narrative: 76-year-old male with multiple medical problems including CAD status post CABG, HTN, HLD, hypothyroidism diverticulitis, labile blood pressure, hip bursitis who presents to the ER for evaluation of intermittent chest pains, shortness of breath, dizziness since yesterday. All symptoms have resolved on arrival to the ER. He is hemodynamically stable. Is a broad differential here will get stool full metabolic workup to rule out life-threatening causes including ACS, PE, CVA. Story does not seem to be consistent with unstable angina. Differential Diagnosis Differential Diagnoses: The differential diagnosis associated with the presentation includes Differential diagnosis includes but not limited to Orthostatic hypotension, ACS, PE, metabolic derangement, anemia, pneumonia, vertigo, stroke, dehydration, anxiety Admission/Observation Consideration of admission/observation: Escalation of care including admission/observation considered Patient remained symptom free. Considered observation but feel it is not required at this time. Lab Data [facility] Lab Attestation statement: I reviewed the patient's lab results. No major metabolic derangement. Troponin is negative. 10/20/22 09:34 10/20/22 09:34 Labs: Lab Results 10/20/22 10/20/22 10/20/22 Range/Units 09:34 09:34 09:34 WBC 7.9 (4.8-10.8) X10*3/uL RBC 4.40 L (4.60-5.80) X10*6/uL Hgb 14.4 (14.0-18.0) g/dl Hct 40.3 L (42.0-52.0) % MCV 91.6 (80.0-98.0) fL MCH 32.7 (27.0-33.0) pg MCHC 35.7 (31.0-36.0) g/dl RDW 12.4 (11.0-16.0) % Plt Count 201 (160-400) X10*3/uL MPV 9.1 L (9.4-12.4) fL Immature Gran % (Auto) 0.3 (0.0-0.4) % Neut % (Auto) 75.9 H (45-73) % Lymph % (Auto) 18.3 L (20-40) % [place] % (Auto) 4.5 (2-11) % Eos % (Auto) 0.5 (0-4) % Baso % (Auto) 0.5 (0-2) % Lymph # (Auto) 1.4 (1.2-4.9) X10*3/uL [place] # (Auto) 0.4 (0.1-1.2) X10*3/uL Eos # (Auto) 0.0 (0.0-0.4) X10*3/uL Baso # (Auto) 0.0 (0.0-0.2) X10*3/uL Abs Immat Gran (auto) 0.02 (0.00-0.03) X10*3/uL Absolute Neuts (auto) 6.0 (2.0-8.3) x10*3/uL Absolute Nucleated RBC 0.000 (0.0-0.012) X10*3/uL Nucleated RBC % (auto) 0.0 (0.0-0.2) /100WBC Sodium 138 (135-145) mmol/L Potassium 3.4 (3.3-5.1) mmol/L Chloride 111 H (96-108) mmol/L Carbon Dioxide 20 L (22-29) mmol/L Anion Gap 10 L (12-20) BUN 15 (9-16) mg/dL Creatinine 0.88 (0.5-1.4) mg/dL Estim Creat Clear Calc 79.6 Estimated GFR > 60 Random Glucose 134 H (60-115) mg/dL Calcium 9.6 D (8.4-10.2) mg/dL Magnesium 2.1 (1.6-2.6) mg/dL Total Bilirubin 0.9 (0.0-1.0) mg/dL Direct Bilirubin 0.3 (0.0-0.5) mg/dL AST 24 (5-37) U/L ALT 21 (0-40) U/L Alkaline Phosphatase 50 (39-117) U/L Troponin I High Sens < 3.5 (<3.5-35.0) ng/L B-Natriuretic Peptide (<100) pg/mL Total Protein 7.4 (6.5-8.0) g/dL Albumin 4.1 (3.5-5.0) g/dL TSH (0.32-4.0) uIU/mL Urine Color Urine Appearance Urine pH (5.0-9.0) Ur Specific [place] (1.005-1.025) Urine Protein (Neg-Trace) mg/dL Urine Glucose (UA) (Negative) mg/dL Urine Ketones (Negative) mg/dL Urine Blood (Negative) Urine Nitrite (Negative) Ur Leukocyte Esterase (Negative) Urine Opiates Screen (Not Detect) Urine Fentanyl Screen (Not Detect) Ur Barbiturates Screen (Not Detect) Ur Phencyclidine Scrn (Not Detect) Ur Amphetamines Screen (Not Detect) U Benzodiazepines Scrn (Not Detect) Urine Cocaine Screen (Not Detect) U Marijuana (THC) Screen (Not Detect) Ethyl Alcohol mg/dL Influenza Type A (PCR) (Negative) Influenza Type B (PCR) (Negative) RSV RNA Qual (PCR) (Negative) SARS-CoV-2 RNA (RT-PCR) (Negative) 10/20/22 10/20/22 10/20/22 Range/Units 09:34 09:34 09:34 WBC (4.8-10.8) X10*3/uL RBC (4.60-5.80) X10*6/uL Hgb (14.0-18.0) g/dl Hct (42.0-52.0) % MCV (80.0-98.0) fL MCH (27.0-33.0) pg MCHC (31.0-36.0) g/dl RDW (11.0-16.0) % Plt Count (160-400) X10*3/uL MPV (9.4-12.4) fL Immature Gran % (Auto) (0.0-0.4) % Neut % (Auto) (45-73) % Lymph % (Auto) (20-40) % [place] % (Auto) (2-11) % Eos % (Auto) (0-4) % Baso % (Auto) (0-2) % Lymph # (Auto) (1.2-4.9) X10*3/uL [place] # (Auto) (0.1-1.2) X10*3/uL Eos # (Auto) (0.0-0.4) X10*3/uL Baso # (Auto) (0.0-0.2) X10*3/uL Abs Immat Gran (auto) (0.00-0.03) X10*3/uL Absolute Neuts (auto) (2.0-8.3) x10*3/uL Absolute Nucleated RBC (0.0-0.012) X10*3/uL Nucleated RBC % (auto) (0.0-0.2) /100WBC Sodium (135-145) mmol/L Potassium (3.3-5.1) mmol/L Chloride (96-108) mmol/L Carbon Dioxide (22-29) mmol/L Anion Gap (12-20) BUN (9-16) mg/dL Creatinine (0.5-1.4) mg/dL Estim Creat Clear Calc Estimated GFR Random Glucose (60-115) mg/dL Calcium (8.4-10.2) mg/dL Magnesium (1.6-2.6) mg/dL Total Bilirubin (0.0-1.0) mg/dL Direct Bilirubin (0.0-0.5) mg/dL AST (5-37) U/L ALT (0-40) U/L Alkaline Phosphatase (39-117) U/L Troponin I High Sens (<3.5-35.0) ng/L B-Natriuretic Peptide 108 H (<100) pg/mL Total Protein (6.5-8.0) g/dL Albumin (3.5-5.0) g/dL TSH 1.22 (0.32-4.0) uIU/mL Urine Color Urine Appearance Urine pH (5.0-9.0) Ur Specific [place] (1.005-1.025) Urine Protein (Neg-Trace) mg/dL Urine Glucose (UA) (Negative) mg/dL Urine Ketones (Negative) mg/dL Urine Blood (Negative) Urine Nitrite (Negative) Ur Leukocyte Esterase (Negative) Urine Opiates Screen (Not Detect) Urine Fentanyl Screen (Not Detect) Ur Barbiturates Screen (Not Detect) Ur Phencyclidine Scrn (Not Detect) Ur Amphetamines Screen (Not Detect) U Benzodiazepines Scrn (Not Detect) Urine Cocaine Screen (Not Detect) U Marijuana (THC) Screen (Not Detect) Ethyl Alcohol < 10 mg/dL Influenza Type A (PCR) NEGATIVE (Negative) Influenza Type B (PCR) NEGATIVE (Negative) RSV RNA Qual (PCR) NEGATIVE (Negative) SARS-CoV-2 RNA (RT-PCR) NEGATIVE (Negative) 10/20/22 10/20/22 Range/Units 09:54 09:54 WBC (4.8-10.8) X10*3/uL RBC (4.60-5.80) X10*6/uL Hgb (14.0-18.0) g/dl Hct (42.0-52.0) % MCV (80.0-98.0) fL MCH (27.0-33.0) pg MCHC (31.0-36.0) g/dl RDW (11.0-16.0) % Plt Count (160-400) X10*3/uL MPV (9.4-12.4) fL Immature Gran % (Auto) (0.0-0.4) % Neut % (Auto) (45-73) % Lymph % (Auto) (20-40) % [place] % (Auto) (2-11) % Eos % (Auto) (0-4) % Baso % (Auto) (0-2) % Lymph # (Auto) (1.2-4.9) X10*3/uL [place] # (Auto) (0.1-1.2) X10*3/uL Eos # (Auto) (0.0-0.4) X10*3/uL Baso # (Auto) (0.0-0.2) X10*3/uL Abs Immat Gran (auto) (0.00-0.03) X10*3/uL Absolute Neuts (auto) (2.0-8.3) x10*3/uL Absolute Nucleated RBC (0.0-0.012) X10*3/uL Nucleated RBC % (auto) (0.0-0.2) /100WBC Sodium (135-145) mmol/L Potassium (3.3-5.1) mmol/L Chloride (96-108) mmol/L Carbon Dioxide (22-29) mmol/L Anion Gap (12-20) BUN (9-16) mg/dL Creatinine (0.5-1.4) mg/dL Estim Creat Clear Calc Estimated GFR Random Glucose (60-115) mg/dL Calcium (8.4-10.2) mg/dL Magnesium (1.6-2.6) mg/dL Total Bilirubin (0.0-1.0) mg/dL Direct Bilirubin (0.0-0.5) mg/dL AST (5-37) U/L ALT (0-40) U/L Alkaline Phosphatase (39-117) U/L Troponin I High Sens (<3.5-35.0) ng/L B-Natriuretic Peptide (<100) pg/mL Total Protein (6.5-8.0) g/dL Albumin (3.5-5.0) g/dL TSH (0.32-4.0) uIU/mL Urine Color Dark Yellow Urine Appearance Clear Urine pH 5.0 (5.0-9.0) Ur Specific [place] 1.025 (1.005-1.025) Urine Protein Negative (Neg-Trace) mg/dL Urine Glucose (UA) Negative (Negative) mg/dL Urine Ketones Trace (Negative) mg/dL Urine Blood Negative (Negative) Urine Nitrite Negative (Negative) Ur Leukocyte Esterase Negative (Negative) Urine Opiates Screen Not Detected (Not Detect) Urine Fentanyl Screen Not Detected (Not Detect) Ur Barbiturates Screen Not Detected (Not Detect) Ur Phencyclidine Scrn Not Detected (Not Detect) Ur Amphetamines Screen Not Detected (Not Detect) U Benzodiazepines Scrn Not Detected (Not Detect) Urine Cocaine Screen Not Detected (Not Detect) U Marijuana (THC) Screen Not Detected (Not Detect) Ethyl Alcohol mg/dL Influenza Type A (PCR) (Negative) Influenza Type B (PCR) (Negative) RSV RNA Qual (PCR) (Negative) SARS-CoV-2 RNA (RT-PCR) (Negative) Independent Interpretation I performed an independent interpretation of an: EKG and Plain X-Ray Interpretation: EKG done at 09:25 showing sinus bradycardia with first-degree AV block, NE interval is 214, no ST segment elevations or depressions. T-wave inversion in V1 only. Artifact in V3 Chest x-ray showing no infiltrate or pneumonia. Radiology Impression Discussion of test interpretation with radiology: I have reviewed the radiologist's reading. Radiologist Impression: Chest [id number]: There is no acute intra-axial, extra-axial bleed, masses or midline shift. Minimal atelectatic changes are seen left lung base. The heart size and pulmonary vascularity is normal. There are median sternotomy sutures from previous intervention. XR/XR chest 1V IMPRESSION: Minimal atelectatic changes left lung base. No acute process seen. Head CT-FINDINGS: There is no acute intra-axial, extra-axial bleed, masses or midline shift. There is no acute infarction in evolution. There is no edema. The dhaliwal to white matter differentiation is maintained normal. The lateral ventricles are symmetrical in size and configuration without enlargement. No abnormality seen in the posterior fossa. Bone windows reveal no calvarial abnormality. There is no scalp soft tissue abnormality. Bilateral paranasal sinuses and mastoid air cells are well-aerated. CT/CT head/brain wo IV con IMPRESSION: No acute intracranial process seen. External Record Review External record reviewed: Office record, Outpatient record, Prior outpatient labs and Prior outpatient radiology Chronic Conditions Patient?s care impacted by: Hypertension Scores Heart Score History: -0- slightly suspicious ECG: -0- normal Age: -2- > or = 65 Risk factory: -1- 1 or 2 risk factors Troponin: -0- < or = normal limit Score: 3 Risk: 1.7% Critical Care Time Critical Care Time Critical Care Time: No Discharge Plan Discharge Clinical Impression: Atypical chest pain Patient Disposition: Home, Self-Care Instructions: Noncardiac Chest Pain (ED) Additional Instructions: Your lab work today was unremarkable. Your EKG and labs did not show any strain on your heart. Your head CT scan was normal. Your blood pressure and vital signs remained stable while in the emergency department Recommend continuing all her medications at home as previously prescribed Recommend monitoring her blood pressure at home once per day, take it in the afternoon after have taken all of her blood pressure medications. Keep track for your doctor. Recommend following up with your doctor next week. If you develop new or worsening symptoms call 911 or come back to the ER for further evaluation. Prescriptions: No Action amlodipine [Norvasc] 5 mg tablet 5 mg PO DAILY Qty: 90 3RF atorvastatin 40 mg tablet 40 mg PO DAILY Qty: 90 3RF metoprolol succinate 25 mg tablet extended release 24 hr 25 mg PO DAILY 90 Days Qty: 90 3RF ezetimibe 10 mg tablet 10 mg PO DAILY Qty: 90 3RF isosorbide mononitrate 30 mg tablet extended release 24 hr 30 mg PO DAILY Qty: 90 3RF metronidazole 500 mg tablet 500 mg PO TID 10 Days Qty: 30 0RF ciprofloxacin HCl [Cipro] 500 mg tablet 500 mg PO BID 7 Days Qty: 14 0RF cinnomin bark 500 mg PO aspirin [Adult Low Dose Aspirin] 81 mg tablet,delayed release (DR/EC) 81 mg PO DAILY calcium carb-mag ox-zinc gluc 333-133-5 mg tablet PO coenzyme Q10 [CoQ-10] 100 mg capsule 100 mg PO DAILY cholecalciferol (vitamin D3) 25 mcg (1,000 unit) capsule 25 mcg PO DAILY multivitamin [Daily Multi-Vitamin] Tablet 1 tab PO DAILY fvmx-fugwmo-yxq#5-X-jkxg-boron 860-820-16-1-3 mg tablet PO antiox. no.[id number]-neo-lfr 280-10-2 mg capsule PO omega-3 fatty acids 1,000 mg capsule 2,000 mg PO DAILY levothyroxine 100 mcg tablet 100 mcg PO DAILY
--- NOTE | 2022-10-20 09:27 | PC.NURSE ---
Patient presents to ED with report of SOB and associated chest pain, chest pain resolved no respiratory distress noted. LS clear SOB worse with exertion patient does report some anxiety. AOx 4 neuros intact no facial droop or deviation of tongue. Grasp equal 5/5 strength, no drift noted no ataxia noted patient does report feeling dizzy no slurring of words. EKG obtained IV access obtained abs collected and sent will CTM
[2022-10-20 09:42] LABS: MANUAL DIFF FLAG NO
[2022-10-20 09:51] LABS: Basophils Percent Auto 0.5 % (0-2); Eosinophils Percent Auto 0.5 % (0-4); Hematocrit 40.3 % (42.0-52.0); Hemoglobin 14.4 g/dl (14.0-18.0); Imm Gran Abs Auto 0.02 X10*3/uL (0.00-0.03); Imm Gran Pct Auto 0.3 % (0.0-0.4); Lymphocytes Absolute Auto 1.4 X10*3/uL (1.2-4.9); Lymphocytes Percent Auto 18.3 % (20-40); Mean Corpuscular HGB Conc 35.7 g/dl (31.0-36.0); Mean Corpuscular Hemoglobin 32.7 pg (27.0-33.0); Mean Corpuscular Volume 91.6 fL (80.0-98.0); Mean Platelet Volume 9.1 fL (9.4-12.4); Monocytes Absolute Auto 0.4 X10*3/uL (0.1-1.2); Monocytes Percent Auto 4.5 % (2-11); Neutrophils Percent Auto 75.9 % (45-73); Platelet Count 201 X10*3/uL (160-400); Red Cell Distribution Width 12.4 % (11.0-16.0); White Blood Count 7.9 X10*3/uL (4.8-10.8)
[2022-10-20 10:00] LABS: Appearance Urine Clear; Color Urine Dark Yellow; Glucose Urine UA Negative (Negative); Leukocyte Esterase Urine Negative (Negative); Nitrite Urine Negative (Negative); Specific Gravity - Urine 1.025 (1.005-1.025); Urine Blood Negative (Negative); Urine Ketones Trace mg/dL (Negative); Urine Protein Negative (Neg-Trace)
[2022-10-20 10:09] LABS: Amphetamine Screen Urine Not Detected (Not Detect); Barbiturates, Urine Not Detected (Not Detect); Benzodiazepines Screen Urine Not Detected (Not Detect); Cannabinoid Screen Urine Not Detected (Not Detect); Cocaine Screen Urine Not Detected (Not Detect); Fentanyl, urine Not Detected (Not Detect); Opiate Screen Urine Not Detected (Not Detect); Phencyclidine Screen Urine Not Detected (Not Detect)
[2022-10-20 10:09] LABS: Ethanol < 10 mg/dL
[2022-10-20 10:11] LABS: B Type Natriuretic Peptide 108 pg/mL (<100)
[2022-10-20 10:12] LABS: Troponin-I High Sensitivity < 3.5 ng/L (<3.5-35.0)
[2022-10-20 10:21] LABS: Alanine Aminotransferase 21 U/L (0-40); Albumin Level 4.1 g/dL (3.5-5.0); Alkaline Phosphatase 50 U/L (39-117); Anion Gap 10 (12-20); Aspartate Amino Transferase 24 U/L (5-37); Bilirubin Direct 0.3 mg/dL (0.0-0.5); Bilirubin Total 0.9 mg/dL (0.0-1.0); Blood Urea Nitrogen 15 mg/dL (9-16); Calcium 9.6 mg/dL (8.4-10.2); Carbon Dioxide 20 mmol/L (22-29); Chloride 111 mmol/L (96-108); Creatinine Clr Calc Pharmacy 79.6; Estimated Glomerular Filt Rate > 60; Glucose Random 134 mg/dL (60-115); Magnesium 2.1 mg/dL (1.6-2.6); Potassium 3.4 mmol/L (3.3-5.1); Sodium 138 mmol/L (135-145); Total Protein 7.4 g/dL (6.5-8.0)
[2022-10-20 10:22] LABS: Influenza A PCR NEGATIVE (Negative); Influenza B PCR NEGATIVE (Negative); Resp Syncy Virus RNA Qual PCR NEGATIVE (Negative); SARS COV2 PCR INHOUSE NEGATIVE (Negative)
[2022-10-20 10:26] LABS: TSH reflex Free T4 1.22 uIU/mL (0.32-4.0)
== END 2022-10-20 11:43 | disposition home or self-care (01) ==
PROVIDERS: Physician Assistant; Emergency Provider Emergency Medicine; PCP Family Medicine
DX: R07.89 Other chest pain (principal); R06.02 Shortness of breath; Z20.822 Contact with and (suspected) exposure to COVID-19; Z20.828 Contact with and (suspected) exposure to other viral communicable diseases; I10 Essential (primary) hypertension; E78.5 Hyperlipidemia, unspecified; Z95.1 Presence of aortocoronary bypass graft; Z79.82 Long term (current) use of aspirin; Z79.899 Other long term (current) drug therapy; Z79.02 Long term (current) use of antithrombotics/antiplatelets
CPT/HCPCS: 0241U; 36415; 70450; 71045; 80048; 80076; 80307; 81003; 82077; 83735; 83880; 84443; 84484; 85025; 93005; 99284; 99285

== ENCOUNTER → 2023-01-31 12:40 | Outpatient (BNVA) | payer MEDICARE, OTHER, SELFPAY | PROVIDERS: PCP Family Medicine; Referring Provider Family Medicine; Visit Provider Internal Medicine Cardiovascular Disease | DX: I25.10 Atherosclerotic heart disease of native coronary artery without angina pectoris (principal); R09.89 Other specified symptoms and signs involving the circulatory and respiratory systems | CPT/HCPCS: 93005; 99212 ==

== ENCOUNTER 2023-02-18 14:59 | Outpatient (REF) | payer MEDICARE, OTHER, SELFPAY ==
[2023-02-19 16:28] LABS: Immunoglobulin E 94 kU/L (<OR=114)
== END 2023-02-18 15:00 | disposition home or self-care (01) ==
LOC: HO.LAB 14:59
PROVIDERS: PCP Family Medicine; Visit Provider Otolaryngology
DX: J30.89 Other allergic rhinitis (principal)
CPT/HCPCS: 36415; 82785

== ENCOUNTER 2023-08-28 09:51 | Outpatient (AMB) | payer MEDICARE, OTHER, SELFPAY ==
--- NOTE | 2023-08-28 09:56 | MHC.OFFWIV ---
Intake Vital Signs 08/28/23 09:58 Height 6 ft Weight 181 lb 2 oz BMI 24.6 BP 118/66 Blood Pressure Location Lt brachial Position Sitting Respiration 13 Pulse 68 Pulse Source Pulse Oximeter Temp 97.8 F Temp Source Temporal Artery Scan Pulse Oximetry (%) 98 Oxygen Delivery Method Room Air Intake Visit Reasons: growth on toe Intake Note: Patient states that it almost like a cyst but after taking a look it sort of looks like a corn on the side of big toe. 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 Required: No Accompanied by: Self / Same As Patient Allergies Sulfa (Sulfonamide Antibiotics) [SULFA (SULFONAMIDE ANTIBIOTICS)] Allergy (Unknown, Verified 08/28/23 10:04) UNKNOWN atorvastatin [From Lipitor] Allergy (Verified 08/28/23 10:04) Unknown Sulfa Allergy (Mild, Uncoded 07/06/21 11:07) sinus problems Do you need a note to return to daycare/school/sports/work: No HPI HPI Comments History of Present Illness Details Here today w c/o lesion on 2nd toe of L foot Noticed 5 days, felt like he developed a cyst on L foot, noted a fluid filled area w/ thick melchor pain / This AM he looked at it and it did not appear to have any more fluid in it He denies fever, chills, trauma to foot No new shoes Is an avid mall walker No at home remedies PFSH Medical History CAD (coronary artery disease) HTN (hypertension) Hyperlipidemia Surgical History History of ankle surgery History of carpal tunnel release Hx of cardiac cath Hx of colonoscopy Hx of tonsillectomy S/P CABG x 3 Family History Father CVD (cardiovascular disease) Mother No problems noted. Alcohol intake: never Patient Tobacco Use Status: Never used Tobacco Review of Systems Const All systems reviewed & are unremarkable except as noted in HPI and below Physical Exam Vital Signs: Last Vital Signs Temp 97.8 F 08/28/23 09:58 Pulse 68 11/22/23 09:58 Resp 13 08/28/23 09:58 BP 118/66 08/28/23 09:58 Pulse Ox 98 08/28/23 09:58 Oxygen Delivery Method Room Air 08/28/23 09:58 BMI result Body Mass Index 24.6 Const Other: awake alert nad speaking in full sentences L 2nd toe, hyperkeratotic lesion c/w corn noted. no signs of secondary infection Assessment & Plan Assessment & Plan (1) [place] of toe: Code(s): L84 - Corns and callosities Orders: Referrals Podiatry Referral L84 - Corns and callosities Patient Instructions: Try over the counter LAMBSWOOL to help prevent friction. Make an appointment with local podiatry for treatment. Coding Level of Care Code Est Pt Level 3 (32340) Diagnoses [place] of toe L84
[2023-08-28 09:58] VITALS: BP 118/66; PULSE 68; RESP 13; TEMP 36.6; O2SAT 98; BMI 24.6
== END 2023-08-28 10:36 | disposition home or self-care (01) ==
PROVIDERS: PCP Family Medicine; Visit Provider Nurse Practitioner Family
DX: L84 Corns and callosities (principal)
CPT/HCPCS: 99213

== ENCOUNTER 2023-11-15 07:52 | Outpatient (AMB) | payer MEDICARE, OTHER, SELFPAY ==
[2023-11-15 08:02] VITALS: BP 124/62; PULSE 67; O2SAT 97; BMI 24.5
--- NOTE | 2023-11-15 08:02 | MHC.OFFWIV ---
Intake Vital Signs 11/15/23 08:02 Height 6 ft Weight 181 lb BMI 24.5 BP 124/62 Blood Pressure Location Rt brachial Position Sitting Pulse 67 Pulse Source Pulse Oximeter Pulse Oximetry (%) 97 Oxygen Delivery Method Room Air Intake Visit Reasons: L side pain Patient Tobacco Use Status: Never used Tobacco Allergies Sulfa (Sulfonamide Antibiotics) [SULFA (SULFONAMIDE ANTIBIOTICS)] Allergy (Unknown, Verified 11/15/23 08:05) UNKNOWN atorvastatin [From Lipitor] Allergy (Verified 11/15/23 08:05) Unknown Sulfa Allergy (Mild, Uncoded 07/06/21 11:07) sinus problems Medication List - Last Reconciled 11/15/23 by Sole Stanley, RN PROCEDURES-BC amlodipine (Norvasc) 5 mg PO DAILY antiox.mv no.53-kdub6j-gbpppov0u-sma-hsm 280-10-2 mg caps PO aspirin (Adult Low Dose Aspirin) 81 mg PO DAILY atorvastatin 40 mg PO DAILY calcium carb-mag ox-zinc gluc 333-133-5 mg tabs PO cholecalciferol (vitamin D3) 25 mcg PO DAILY [cinnomin bark PO] coenzyme Q10 (CoQ-10) 100 mg PO DAILY ezetimibe 10 mg PO DAILY ljbf-yhreqw-boc#2-G-jsvm-boron 869-139-43-1-3 mg tabs PO isosorbide mononitrate ER 30 mg PO DAILY levothyroxine 100 mcg PO DAILY metoprolol succinate ER 25 mg PO DAILY 90 days multivitamin (Daily Multi-Vitamin tablet) 1 tab PO DAILY omega-3 fatty acids 2,000 mg PO DAILY HPI HPI Comments History of Present Illness Details Here today with L sided pain last Sat picking up heavy box started w/ sharp pain 9/10 in LUQ lasted a few seconds pain has diminished to a 1/10 when its there, which is intermittent. Exacerbated by coughing and bending over - not all the time; pressing on the area also causes pain. No at home treatment Reports breathing is normal. No hemoptysis. Denies abd sx such as change in bowel or bladder, hematuria. FORMERLY [facility], LATER [facility] Medical History CAD (coronary artery disease) HTN (hypertension) Hyperlipidemia Surgical History History of ankle surgery History of carpal tunnel release Hx of cardiac cath Hx of colonoscopy Hx of tonsillectomy S/P CABG x 3 Family History Father CVD (cardiovascular disease) Mother No problems noted. Social History Alcohol intake: never Patient Tobacco Use Status: Never used Tobacco Review of Systems Const All systems reviewed & are unremarkable except as noted in HPI and below Physical Exam Const Other: Awake alert oriented no acute distress Regular rate and rhythm Lungs sounds clear to auscultation, no retractions No obvious deformity to chest, thorax. Pain with palpation over left anterior ribcage 9 And 10, no crepitus, no ecchymosis Abdominal exam is benign Assessment & Plan Assessment & Plan (1) Rib pain on left side: Code(s): R07.81 - Pleurodynia Plan: Very pleasant gentleman likely has costochondritis to the left anterior ribcage from lifting a box. He feels his pain is well controlled right now and does not need anything including ybhx-dfv-enlhhoa medications. Chest x-ray with left ribs performed today. Normal Education was provided today to him. Total time spent caring for the patient today was 30 minutes. This includes time spent before the visit reviewing the chart, time spent during the visit, and time spent after the visit on documentation This note is constructed using voice recognition software. While every effort has been made to ensure accuracy in warehouse lead, still errors may have been included Sometimes, these errors may affect the content or meaning of the given sentence . (2) Costochondritis, acute: Code(s): M94.0 - Chondrocostal junction syndrome [Tietze] Plan: . Orders: Orders XR ribs LT min 3V w CXR1V Today R07.81 - Pleurodynia Coding Level of Care Code Est Pt Level 4 (76783) Diagnoses Rib pain on left side R07.81 Costochondritis, acute M94.0
== END 2023-11-15 09:12 | disposition home or self-care (01) ==
PROVIDERS: PCP Family Medicine; Visit Provider Nurse Practitioner Family
DX: R07.81 Pleurodynia (principal); M94.0 Chondrocostal junction syndrome [Tietze]
CPT/HCPCS: 99214

== ENCOUNTER 2023-11-15 09:10 | Outpatient (REF) | payer MEDICARE, OTHER, SELFPAY ==
--- NOTE | ~2023-11-15 | XR_ITS ---
EXAMINATION: XR RIBS, LEFT CLINICAL INFORMATION: Pleurodynia COMPARISON: None available. TECHNIQUE: 3 views of the left ribs were obtained. Chest PA 1 view FINDINGS: Chest: Lungs are clear. No consolidation, pneumothorax, or pleural effusion. The cardiomediastinal silhouette and pulmonary vasculature are normal. There are median sternotomy sutures from previous CABG. Multiple views of left ribs reveal no visible fracture or bony abnormality. The soft tissues are normal. XR/XR ribs LT min 3V w CXR1V IMPRESSION: 1. Unremarkable chest exam. 2. Unremarkable left rib exam.
== END 2023-11-15 09:11 | disposition home or self-care (01) ==
LOC: HO.XRAY 09:10
PROVIDERS: PCP Family Medicine; Visit Provider Nurse Practitioner Family
DX: R07.81 Pleurodynia (principal)
CPT/HCPCS: 71101

== ENCOUNTER 2024-02-04 12:16 | Outpatient (AMB) | payer MEDICARE, OTHER, SELFPAY ==
[2024-02-04 12:40] VITALS: BP 110/64; PULSE 57; BMI 24.5
--- NOTE | 2024-02-04 12:40 | MHC.OFFVIS ---
Vital Signs 02/04/24 12:40 Height 6 ft Weight 180 lb 12.465 oz BMI 24.5 BP 110/64 Blood Pressure Location Lt brachial Position Sitting Pulse 57 Intake Visit Reasons: 1 yr f/up Intake Note: 1 year follow-up with ekg feeling ok Shield Installer Required: No Allergies Sulfa (Sulfonamide Antibiotics) [SULFA (SULFONAMIDE ANTIBIOTICS)] Allergy (Unknown, Verified 11/15/23 08:05) UNKNOWN atorvastatin [From Lipitor] Allergy (Verified 11/15/23 08:05) Unknown Sulfa Allergy (Mild, Uncoded 07/06/21 11:07) sinus problems Medication List - Last Reconciled 02/04/24 by Kevin Durham MD amlodipine 5 mg PO DAILY antiox.mv no.45-[id number]-jgaozqk7p-dqf-ygp 280-10-2 mg caps PO aspirin (Adult Low Dose Aspirin) 81 mg PO DAILY atorvastatin 40 mg PO DAILY calcium carb-mag ox-zinc gluc 333-133-5 mg tabs PO cholecalciferol (vitamin D3) 25 mcg PO DAILY [cinnomin bark PO] coenzyme Q10 (CoQ-10) 100 mg PO DAILY ezetimibe 10 mg PO DAILY weud-bsglsk-pqq#0-J-eexx-boron 386-950-63-1-3 mg tabs PO isosorbide mononitrate ER 30 mg PO DAILY levothyroxine 100 mcg PO DAILY metoprolol succinate ER 25 mg PO DAILY 90 days multivitamin (Daily Multi-Vitamin tablet) 1 tab PO DAILY omega-3 fatty acids 2,000 mg PO DAILY HPI Comments Details: Fernie comes for follow-up. He has been doing very well from cardiac perspective. He says he continues to walk 7 miles without any issues. No exertional chest pain although he has been noticing some exertional shortness of breath. No orthopnea, PND, leg edema. No claudication. No prolonged palpitation irregular heartbeat. No lightheadedness, syncope. Blood pressure at home he is stopped monitoring. Denies any issues with the medications. Do not have any recent labs [facility] Medical History HTN (hypertension) Hyperlipidemia CAD (coronary artery disease) Surgical History S/P CABG x 3 History of carpal tunnel release History of ankle surgery Hx of tonsillectomy Hx of colonoscopy Hx of cardiac cath Family History Father CVD (cardiovascular disease) Mother No problems noted. Social History Alcohol intake: never Patient Tobacco Use Status: Never used Tobacco Review of Systems Const Denies chills, Denies fatigue, Denies fever(s), Denies frequent falls, Denies weakness, Denies weight gain and Denies weight loss ENT Denies dizziness Card Denies chest pain, Denies leg edema, Denies lightheadedness, Denies palpitations, Denies dyspnea, Denies dyspnea on exertion, Denies orthopnea and Denies other (loss of consciousness) Resp Denies cough, Denies dyspnea and Denies dyspnea on exertion GI Denies hematochezia and Denies change in stool character Musc Denies abnormal gait, Denies muscle weakness, Denies numbness, Denies radiating pain into limb and Denies tingling Neuro Denies abnormal gait, Denies dizziness, Denies frequent falls, Denies numbness, Denies tingling and Denies weakness Endo Denies fatigue and Denies palpitations Physical Exam Vital Signs: Last Vital Signs Pulse 57 02/04/24 12:40 BP 110/64 02/04/24 12:40 BMI result Body Mass Index 24.5 Repeat blood pressure, right arm at to 124/62 and left arm at 128/64 Const General: cooperative, comfortable, no acute distress, alert, awake and anxious Nutritional Appearance: average body habitus Orientation/consciousness: patient oriented x3 Limitations: no limitations Neck Neck: Yes trachea midline, Yes supple and Yes no JVD Chest Chest palpation & inspection: normal inspection of the chest Resp Effort & Inspection: normal respiratory effort Auscultation: clear to auscultation bilaterally Cardio Jugular venous distension: no JVD Palpation: normal PMI Rate: regular rate Rhythm: regular rhythm Heart sounds: S1 normal heart sound present and S2 normal heart sound present GI Auscultation: normal bowel sounds Skin General skin exam: no rashes or lesions noted Neuro General: patient oriented x3 and no focal motor deficits Extrem General: Yes no clubbing, cyanosis or edema Psych Appearance: grossly normal Affect: Anxious affect present Office Procedures EKG Details: EKG shows normal sinus rhythm with PACs with minimal voltage criteria for LVH 06518-[id number], Complete Assessment & Plan Assessment & Plan (1) CAD (coronary artery disease): Code(s): I25.10 - Atherosclerotic heart disease of [place] coronary artery without angina pectoris Category: Medical Plan: CAD with coronary artery bypass grafting without any symptoms of angina at current point time. Continue current aggressive medical therapy. Continue lifelong aspirin therapy. Continue high-intensity statin therapy along with ezetimibe therapy. Target goal LDL closer to 60 mg/dL. Will obtain lab work through your office. Blood pressure is currently well optimized. Continue current therapy importance of good blood pressure control was discussed. Understands agrees. Continue maintain activity level as tolerated. Advised to call me with any new symptoms. Given his exertional shortness of breath will suggest an echocardiogram to evaluate for LV systolic and diastolic function to evaluate for pulmonary hypertension. Will pursue myocardial perfusion imaging next year at 5 year anniversary to evaluate for graft patency as per recommendations. (2) Labile blood pressure: Code(s): R09.89 - Other specified symptoms and signs involving the circulatory and respiratory systems Category: Medical Plan: Labile blood pressure, generally well controlled. Has no symptoms of lightheadedness. Continue aggressive blood pressure control. Advised to monitor blood pressure intermittently at home. Low-salt diet was discussed. Stress mitigation strategies advised. Continue maintain activity level as tolerated. Will follow up in the clinic in 1 year's time, sooner p.r.n.. Addendum just obtained LDL which was 42 mg/dL. Continue current medical therapy. Coding Level of Care Code Est Pt Level 4 (01123) Diagnoses CAD (coronary artery disease) I25.10 Labile blood pressure R09.89 CPT Codes EKG - CPT: 00414-Dnpiqrwmguzrrdjny, Complete ([id number])
== END 2024-02-04 13:05 | disposition home or self-care (01) ==
PROVIDERS: Visit Provider Internal Medicine Cardiovascular Disease
DX: I25.10 Atherosclerotic heart disease of native coronary artery without angina pectoris (principal); R09.89 Other specified symptoms and signs involving the circulatory and respiratory systems
CPT/HCPCS: 93010; 99214

== ENCOUNTER → 2024-02-04 12:16 | Outpatient (BNVA) | payer MEDICARE, OTHER, SELFPAY | PROVIDERS: Visit Provider Internal Medicine Cardiovascular Disease | DX: I25.10 Atherosclerotic heart disease of native coronary artery without angina pectoris (principal); R09.89 Other specified symptoms and signs involving the circulatory and respiratory systems | CPT/HCPCS: 93005; 99212 ==

== ENCOUNTER → 2024-02-20 13:37 | Outpatient (REF) | payer MEDICARE, OTHER, SELFPAY ==
--- NOTE | 2024-02-20 13:40 | CA_ITS ---
Transthoracic Echocardiogram Patient (Last, First, Middle): Fernie Cota L Gender: Male Date of : 1945 Age: 78 Procedure Date: 02/20/2024 Procedure Type: Transthoracic Echocardiogram Location: OP Height: 180.34 cm Weight: 79.38 kg BSA: 1.99 m2 Heart Rate: 51 bpm BP: 114 / 64 mmHg Pharmacy Clinical Coordinator: SB Referring MD: Kevin Durham MD Stranding Supervisor: Kevin Durham MD Symptoms: R06.02 - Shortness of breath Study Quality: Adequate ECG Rhythm: Bradycardia Conclusions: - 1. Normal LV ejection fraction of 65-70% with pseudonormal filling pressure 2. Cardiac valvular Dopplers within normal limits 3. Normal RV systolic pressure 4. No gross pericardial effusion Findings Left Ventricle Normal left ventricular size, thickness, and systolic function. The visually estimated ejection fraction is between 65-70%. Spectral Doppler is indicative of a pseudonormal filling pattern. E/E prime ratio is between 8 and 15 consistent with indeterminate filling pressures. focal basal septal hypertrophy Right Ventricle Normal right ventricular cavity size. There is moderately decreased right ventricular systolic function. Atria The left atrium is likely dilated. There is lipomatous hypertrophy of the interatrial septum. There is no evidence of interatrial shunt. The right atrium is normal in size. Aortic Valve Normal aortic valve structure and function. There is no aortic valve stenosis. There is no aortic valve regurgitation. Mitral Valve Normal mitral valve structure and function. There is mild mitral annular calcification. There is trace mitral valve regurgitation. There is no mitral valve stenosis. Pulmonic Valve The pulmonic valve is likely normal. There is trace pulmonic valve regurgitation. Tricuspid Valve Normal tricuspid valve structure. There is trace tricuspid valve regurgitation. The right ventricular systolic pressure is normal. The right ventricular systolic pressure is 19 mmHg. Normal right atrial pressure. There is no evidence of pulmonary hypertension. Great Vessels The pulmonary artery was not well visualized. There is no dilatation of the ascending aorta measuring 3.40 cm. Small plaque is seen in the sino tubular ridge. Venous The inferior vena cava is normal in size and collapses greater than 50% with inspiration. Pericardium/Pleural There is no evidence of pericardial effusion. Prior Study Comparison No significant change compared to prior study dated: 10/17/2020. Measurements 2D Linear Measurements IVSd: 0.78 0.6-0.9/0.6-1.0 cm LVIDd: 4.82 3.9-5.3/4.2-5.9 cm LVIDd Index: 2.42 2.4-3.2/2.2-3.1 cm/m2 LVIDs: 3.73 2.0-3.6 cm LVPWd: 0.58 0.7-1.1 cm LA Diam: 4.50 2.7-3.8/3.0-4.0 cm LAIDs Index: 2.26 1.5-2.3 cm/m2 LV Mass: 128.89 67-162/88-224 g LV Mass Index: 64.77 43-95/49-115 g/m2 LVOT Diam: 2.30 3.0+(-)1.3 cm 2D Systolic Function EF 4C: 76.60 >55% EF 2C: 60.20 >55% EF BiP: 69.20 >55% Mitral Valve MV Pk E: 0.61 MV PK A: 0.50 MV Decel Time: 271.00 E/A: 1.20 E'Lateral: 8.49 E'Medial: 6.42 E/E' Med: 9.50 E/E' Lat: 7.20 PHT: 79.00 MVA PHT: 2.78 Decel Rincon: 2.24 Aortic Valve AoV Pk Leodan: 1.08 AoV Pk Grad: 5.00 MERE: 3.55 LVOT LVOT Pk Leodan: 0.98 LVOT Mn Leodan: 0.64 LVOT VTI: 0.22 LVOT Pk Grad: 4.00 LVOT Mn Grad: 2.00 LVOT Diam: 2.30 LVOT Area: 4.15 Diastolic Function MV Pk E: 0.61 MV Pk A: 0.50 E/A: 1.20 E'Medial: 6.42 E/E' Med: 9.50 E' Laterial: 8.49 E/E' Lat: 7.20 Right Ventricle TAPSE (mm): 14.20 TVS' Leodan: 8.05 Tricuspid Valve TR Pk Leodan: 2.03 TR Pk Grad: 16.00 RA Press: 3.00 RVSP: 19.00 Great Vessels Aorta Sinus of Valsalva: 3.50 2.0-3.5 cm Ao Asc: 3.40 2.1-3.4 cm Ao Arch: 3.00 Pulmonary Valve PV Pk Leodan: 0.84 Peak PV Grad: 3.00 KS Pk Leodan: 1.91 Updated in Other Vendor System with Status of Final Kevin Durham MD electronically signed on 02/20/2024 6:05:45 PM with status of Final
== END ==
LOC: HO.CARD 13:37
PROVIDERS: PCP Family Medicine; Visit Provider Internal Medicine Cardiovascular Disease
DX: R06.02 Shortness of breath (principal)
CPT/HCPCS: 93306

== ENCOUNTER → 2024-02-20 13:40 | Outpatient (BNV) | payer MEDICARE, OTHER, SELFPAY | PROVIDERS: PCP Family Medicine; Visit Provider Internal Medicine Cardiovascular Disease | DX: I34.81 Nonrheumatic mitral (valve) annulus calcification (principal); R06.02 Shortness of breath | CPT/HCPCS: 93306 ==

== ENCOUNTER 2024-06-23 08:11 | Outpatient (AMB) | payer MEDICARE, OTHER, SELFPAY ==
[2024-06-23 08:18] VITALS: BP 114/76; PULSE 62; TEMP 36.4; O2SAT 97; BMI 24.7
--- NOTE | 2024-06-23 08:18 | AM.OFFWIN_ITS ---
Intake Vital Signs 3 06/23/24 08:18 Height 6 ft Weight 182 lb BMI 24.7 BP 114/76 Blood Pressure Location Rt brachial Position Sitting Pulse 62 Pulse Source Pulse Oximeter Temp 97.6 F Temp Source Oral Pulse Oximetry (%) 97 Oxygen Delivery Method Room Air Intake Visit Reasons: EP Wound on arm from tree branch Intake Note: pt c/o wound on LT forearm from tree branch. Happened 5 days ago Patient Tobacco Use Status: Former Tobacco user Allergies Sulfa (Sulfonamide Antibiotics) [SULFA (SULFONAMIDE ANTIBIOTICS)] Allergy (Unknown, Verified 06/23/24 08:23) UNKNOWN Sulfa Allergy (Mild, Uncoded 06/23/24 08:23) sinus problems Medication List - Last Reconciled 06/23/24 by Ivan Mcnamara MD amlodipine 5 mg PO DAILY antiox.mv no.15-unuk8i-ipvkxgb9n-mag-cgo 280-10-2 mg caps PO aspirin (Adult Low Dose Aspirin) 81 mg PO DAILY atorvastatin 40 mg PO DAILY calcium carb-mag ox-zinc gluc 333-133-5 mg tabs PO cholecalciferol (vitamin D3) 25 mcg PO DAILY [cinnomin bark PO] coenzyme Q10 (CoQ-10) 100 mg PO DAILY ezetimibe 10 mg PO DAILY pvrh-nfinaf-ojj#2-A-jtjd-boron 603-456-83-1-3 mg tabs PO isosorbide mononitrate ER 30 mg PO DAILY levothyroxine 100 mcg PO DAILY metoprolol succinate ER 25 mg PO DAILY 90 days multivitamin (Daily Multi-Vitamin tablet) 1 tab PO DAILY omega-3 fatty acids 2,000 mg PO DAILY Do you need a note to return to daycare/school/sports/work: No HPI EP Wound on arm from tree branch 2 HPI0 Details Patient is a 78-year-old gentleman came in today to be evaluated for wound he encountered on his left forearm 5 days ago while cutting tree branches Patient says that it does not hurt but every time he takes the bandage off he noticed small amount of blood On examination he has half an inch by 1/4 inch open wound left forearm which is healing from edges There are no signs of inflammation infection or any pus discharge Explained to patient that because the skin is off the food days healing from edges That is why it is taking longer Also discuss the signs of infection, if any inflammation pain or pus discharge start developing he is to notify his primary care Otherwise continue to monitor it and continued to keep it clean and dry. Tetanus vaccine was 2021 [facility] Medical History HTN (hypertension) Hyperlipidemia CAD (coronary artery disease) Surgical History S/P CABG x 3 History of carpal tunnel release History of ankle surgery Hx of tonsillectomy Hx of colonoscopy Hx of cardiac cath Family History Father CVD (cardiovascular disease) Mother No problems noted. Social History Alcohol intake: never Patient Tobacco Use Status: Former Tobacco user Review of Systems Const All systems reviewed & are unremarkable except as noted in HPI and below Physical Exam Vital Signs: Last Vital Signs Temp 97.6 F 06/23/24 08:18 Pulse 62 06/23/24 08:18 BP 114/76 06/23/24 08:18 Pulse Ox 97 06/23/24 08:18 Oxygen Delivery Method Room Air 06/23/24 08:18 BMI result Body Mass Index 24.7 Const General: no acute distress Orientation/consciousness: patient oriented x3 Eyes General: appearance normal, both eyes and all related structures Resp Effort & Inspection: normal respiratory effort and able to speak in complete sentences Cardio Other: S1 S2 Neuro General: patient oriented x3 Extrem Elbow/forearm/wrist images: 2 1. Half an inch by 1/4 inch open wound, healing well from edges no signs of infection Psych Mental Status: mental status grossly normal Assessment & Plan Assessment & Plan (1) Injury of skin and subcutaneous tissue: Code(s): T14.90XA - Injury, unspecified, initial encounter (2) Open arm wound: Code(s): S41.109A - Unspecified open wound of unspecified upper arm, initial encounter Qualifiers: Encounter type: initial encounter Laterality: left Qualified Code(s): S41.102A - Unspecified open wound of left upper arm, initial encounter Plan Patient is a 78-year-old gentleman came in today to be evaluated for wound he encountered on his left forearm 5 days ago while cutting tree branches Patient says that it does not hurt but every time he takes the bandage off he noticed small amount of blood On examination he has half an inch by 1/4 inch open wound left forearm which is healing from edges There are no signs of inflammation infection or any pus discharge Explained to patient that because the skin is off the food days healing from edges That is why it is taking longer Also discuss the signs of infection, if any inflammation pain or pus discharge start developing he is to notify his primary care Otherwise continue to monitor it and continued to keep it clean and dry. Tetanus vaccine was 2021 Coding Level of Care Code Est Pt Level 3 (04925) Diagnoses Injury of skin and subcutaneous tissue T14.90XA Open wound of left upper extremity, initial encounter S41.102A Encounter type: initial encounter Laterality: left
== END 2024-06-23 08:47 | disposition home or self-care (01) ==
PROVIDERS: PCP Family Medicine; Visit Provider Internal Medicine
DX: T14.90XA Injury, unspecified, initial encounter (principal); S41.102A Unspecified open wound of left upper arm, initial encounter

== ENCOUNTER → 2024-06-23 08:11 | Outpatient (BNVA) | payer MEDICARE, OTHER, SELFPAY | PROVIDERS: PCP Family Medicine | DX: S41.102A Unspecified open wound of left upper arm, initial encounter (principal) | CPT/HCPCS: 99212 ==

== ENCOUNTER 2024-09-22 09:53 | Outpatient (AMB) | payer MEDICARE, OTHER, SELFPAY ==
[2024-09-22 10:59] VITALS: BP 110/62; PULSE 72; TEMP 36.7; O2SAT 96
--- NOTE | 2024-09-22 10:59 | AM.OFFWIN_ITS ---
Intake Vital Signs 09/22/24 10:59 Weight 183 lb BP 110/62 Blood Pressure Location Rt brachial Position Sitting Pulse 72 Pulse Source Pulse Oximeter Temp 98.0 F Temp Source Oral Pulse Oximetry (%) 96 Oxygen Delivery Method Room Air Intake Visit Reasons: EP sinus Intake Note: Patient here for sinus pressure that has been present for about 7 days. Patient Tobacco Use Status: Former Tobacco user Allergies Sulfa (Sulfonamide Antibiotics) [SULFA (SULFONAMIDE ANTIBIOTICS)] Allergy (Unknown, Verified 09/22/24 10:59) UNKNOWN Sulfa Allergy (Mild, Uncoded 09/22/24 10:59) sinus problems Do you need a note to return to daycare/school/sports/work: No HPI HPI Comments History of Present Illness Details History of Present Illness The patient is a 78-year-old male presenting with nasal congestion and epistaxis. The symptoms have persisted for over seven days, with the right nostril being more affected than the left. The patient reports expelling brownish-yellowish mucus with a significant amount of blood. There is no associated fever, sinus pain, or ear pain. He does experience sneezing approximately 10 times per day and mild coughing, predominantly at night when the buildup occurs. The patient has not felt congested per his description and has not used any interventions thus far. A home COVID test was performed with a negative result, although the patient remains uncertain of its accuracy. In the past week, there is no history of shortness of breath, wheezing, headaches, or fatigue. There is considerable blood in the mucus, especially noted during nighttime and upon waking. Physical Exam General: Cooperative, healthy appearing, comfortable, no acute distress and well developed Orientation: Patient oriented x3 Limitations: No limitations Head: Normal to inspection Ears: Hearing grossly normal bilaterally, no ear pain, TMs normal bilaterally Nose: Normal external nose present, nasal congestion present, no blood noted Face and sinus: Normal facial exam, no TTP sinuses Eyes: Appearance normal, both eyes and all related structures Neck: Normal visual inspection and Yes full ROM Respiratory: Normal respiratory effort and able to speak in complete sentences. Skin: No rashes or lesions noted Neuro: Patient oriented x3 Extremities: Normal to inspection [facility]LY [facility] Medical History HTN (hypertension) Hyperlipidemia CAD (coronary artery disease) Surgical History S/P CABG x 3 History of carpal tunnel release History of ankle surgery Hx of tonsillectomy Hx of colonoscopy Hx of cardiac cath Family History Father CVD (cardiovascular disease) Mother No problems noted. Social History Alcohol intake: never Patient Tobacco Use Status: Former Tobacco user Review of Systems Const All systems reviewed & are unremarkable except as noted in HPI and below Physical Exam Vital Signs: Last Vital Signs Temp 98.0 F 09/22/24 10:59 Pulse 72 09/22/24 10:59 BP 110/62 09/22/24 10:59 Pulse Ox 96 09/22/24 10:59 Oxygen Delivery Method Room Air 09/22/24 10:59 Assessment & Plan Assessment & Plan (1) URI, acute: Code(s): J06.9 - Acute upper respiratory infection, unspecified Plan: Plan - Recommend the use of Fluticasone Propionate nasal spray Flonase administered twice daily, aiming towards the cheekbones to ensure effective delivery into the sinuses. - Advise the use of saline nasal spray intermittently throughout the day to maintain moisture in the nasal passages and reduce potential exacerbation of nasal dryness and bleeding. - Instruct the patient to utilize a humidifier at night, as a measure to allevia te dryness. - Conduct testing for Influenza, COVID-19, and Respiratory Syncytial Virus RSV to confirm or rule out infectious etiologies. - Monitor symptoms and if epistaxis persists, advise emergency evaluation to exclude possible serious conditions such as a pulmonary embolism, though such a cause is considered unlikely based on the present symptomatology. Patient was informed and verbally consented to the use of an ambient scribe for clinic note documentation during this visit. Orders: Orders SARS-CoV2/FLU/RSV Today J06.9 - Acute upper respiratory infection, unspecified Medications: New fluticasone propionate 50 mcg/actuation administer into each nostril 1 spray intranasal Q12H 16 grams 0RF Coding Level of Care Code New Pt Level 3 (38010) Diagnoses URI, acute J06.9
== END 2024-09-22 12:56 | disposition home or self-care (01) ==
PROVIDERS: PCP Family Medicine; Visit Provider Physician Assistant
DX: J06.9 Acute upper respiratory infection, unspecified (principal)

== ENCOUNTER 2024-09-22 09:53 | Outpatient (REF) | payer MEDICARE, OTHER, SELFPAY ==
[2024-09-22 14:03] LABS: Influenza A PCR NEGATIVE (Negative); Influenza B PCR NEGATIVE (Negative); Resp Syncy Virus RNA Qual PCR NEGATIVE (Negative); SARS COV2 PCR INHOUSE NEGATIVE (Negative)
== END 2024-09-22 09:54 | disposition home or self-care (01) ==
LOC: HO.LAB 09:53
PROVIDERS: Physician Assistant; PCP Family Medicine
DX: J06.9 Acute upper respiratory infection, unspecified (principal)
CPT/HCPCS: 0241U; 99202

== ENCOUNTER → 2025-01-12 07:39 | Outpatient (REF) | payer MEDICARE, OTHER, SELFPAY ==
--- NOTE | ~2025-01-12 | NM_ITS ---
EXERCISE MYOCARDIAL PERFUSION STUDY INDICATION: Coronary artery disease TECHNIQUE: The patient was brought in for an exercise perfusion study on 01/12/2025. Patient performed exercise as per Joseph protocol and was injected 25 mCi of sestamibi once target heart rate was achieved. Images were obtained using the SPECT gamma camera interlaced with the gating device. Images were obtained in supine position. Resting perfusion study was performed on 01/13/2025. Patient was administered 25 mCi of sestamibi intravenously at rest. Images were then obtained in supine position. Total DLP 84 mGy-cm. Images were processed with the software and compared side to side in short axis, horizontal long axis and vertical long axis views. FINDINGS: Raw aquisition reviewed. The stress perfusion study showed diminished tracer uptake at the apex. No significant change with CT attenuation correction. The gated study shows normal LV systolic function with calculated LVEF of 72%. LV cavity is normal in size. The gated study shows normal wall thickening and contraction of segments. Resting study shows small area of reduced tracer uptake at the apex. No significant change with CT attenuation correction. Gating at rest reveals normal wall motion with ejection fraction at 67%. The findings are consistent with small fixed defect at the apex. Could be artifactual. Possible small nontransmural infarct. NM/NM cardiolite stress test IMPRESSION: 1. Myocardial perfusion imaging study shows no clear evidence of ischemia. Possible small nontransmural infarct in the apex vs artifact. 2. Gated LVEF is 72% during stress and 67% during rest. 3. Transient ischemic dilatation not present. EKG component of the test reported separately. Electronically signed by: Vishnu Wilson MD 01/14/2025 10:32 AM EDT
--- OUTSIDE RECORDS SUMMARY | 2025-01-12 07:42 | XMS_ITS | Patient Health Record ---
Author Organization [facility] Vivian Address [address] [place] [address] Care Team Providers Care Financial Reporting Accountant Name Role Phone Alexandra CORMIER, Dawit Primary Care Provider Donte Ramos Unavailable [phone] Allergies Allergen (clinical drug ingredient) Drug/Non Drug Allergy documented on EMR Reaction Allergy Type Onset Date Status sulfa rash Drug Allergy Active Penicillin rash Drug Allergy Active Reason For Referral No Information Medications Medication SIG (Take, Route, Frequency, Duration) Notes Start Date End Date Status [place] 3 1200 MG 1 capsule Orally Onc e a day for 30 day(s) Active Coenzyme Q-10 200 MG 1 capsule with a me al Orally Once a day for 30 day(s) Active Cipro 500 MG 1 tablet Orally ever y 12 hrs for 10 day(s) 02/02/2013 Active Acidophilus/Pectin 100 MG as directed Orally Active Vitamin D 1000 UNIT 1 tablet Orally Once a day for 30 day(s) Active Levothyroxine Sodium 112 MCG 1 tablet on an empty stomach in the morning Orally Once a day for 30 day(s) Active Pravastatin Sodium 80 MG 1 tablet Orally Once a day for 30 day(s) Active Asacol 400 MG 1 tablet Orally Four times a day for 30 day(s) Active Lutein 20 MG 1 capsule with a krystal l Orally Once a day for 30 day(s) Active Cinnamon 500 MG as directed Orally Active Glucosamine 500 MG 1 capsule with a krystal l Orally Once a day for 30 day(s) Active Chondroitin Sulfate 400 MG as directed Orally Active Problems Problem Type SNOMED Code ICD Code Onset Dates Problem Status W/U Status Risk Notes Problem Contusion of toe (95073807) Contusion of toe (924.3) Active confirmed Problem Pain in limb (16259780) Pain in Limb (729.5) Active confirmed Problem Subungual hematoma (016533601) Subungual Hematoma (924.9) Active confirmed Plan Of Treatment Pending Test Test Name Order Date X ray : Foot, right 3V 02/02/2013 [id number] SKIN/TISSUE 02/16/2013 [id number]. Subungual Hematoma 3 Insurance Providers Payer Name Payer Address Payer Phone Subscriber Number Group Number Insured Name Patient Relationship to Insured Coverage Start Date Coverage End Date Medicare National Govt Sv[employer] Inc [address] [place] [phone] [id number] BourguiFernie sanchez Self - patient is the insured for Life [address] [place] [address] [phone] [id number] Fernie Morse Self - patient is the insured Medical (General) History Medical History History ICD Code carpal tunnel hemorrhoids broken bones colitis lyme disease diabetic thyroid disorder chronic sinusitis measles chicken pox Surgical History Surgery Date(Month/Year) tonsillectomy ankle surgery carpal tunnel surgery vocal cords shoulder surgery prostatectomy penile prosthesis colonoscopy
--- OUTSIDE RECORDS SUMMARY | 2025-01-12 07:42 | XMS_ITS ---
Author Organization [facility] Address [address] [facility] [address] [place] [phone] Care Team Providers Care Icer Machine Operator Name Role Phone Alexandra CORMIER, Dawit Primary Care Provider Unava sina Kaur Jr, Edwin Bowles REASON FOR VISIT CANCELLED APPT ON 09-23-2023 Encounters Encounter Location Date Provider Diagnosis [facility] [address] [facility] [address] [place] [phone] 09/19/2023 Edwin Kaur Jr Plan Of Treatment Next Appt Details Provider Name:Edwin ordaz Jr, 03/26/2025 09:20:00 AM, [address] [place] [address], [address], [place], [address], Progress Notes * SUNDAY LOPEZ LDOB: (77 yo M)Acc No.[id number]:09/19/2023 Patient:?JIM LOPEZ :1945???Age:77 Y???Sex:Male Address:[address] [place] [address] * true * Date:? Generated for Printi ng/Faguyg/eTransmitting on:?01/12/2025 07:42 AM EDT
--- OUTSIDE RECORDS SUMMARY | 2025-01-12 07:42 | XMS_ITS ---
Author Organization [facility] Address [address] [facility] [address] [place] [address] Care Team Providers Care Refrigerated Company Driver Name Role Phone Alexandra CORMIER, Dawit Primary Care Provider Unava ilgabo Kaur Jr, Edwin Bowles REASON FOR VISIT having issues with b/m Encounters Encounter Location Date Provider Diagnosis [facility] [address] [place] [address] 09/09/2023 Edwin Kaur Jr Plan Of Treatment Next Appt Details Provider Name:Edwin ordaz Jr, 03/26/2025 09:20:00 AM, [address] [place] [address], [address], [place], [address], Progress Notes * SUNDAY LOPEZ LDOB: (77 yo M)Acc No.[id number]:09/09/2023 Patient:?JIM LOPEZ :1945???Age:77 Y???Sex:Male [address] [address] * true * Date:? Generated for Printi ng/Faguyg/eTransmitting on:?01/12/2025 07:42 AM EDT
--- OUTSIDE RECORDS SUMMARY | 2025-01-12 07:43 | XMS_ITS | Patient Health Record ---
Author Organization [facility] Address [address] [place] [address] Care Team Providers Care Bridge Worker Apprentice Name Role Phone Alexandra CORMIER, Dawit Primary Care Provider Edwin Milligan Jr Unavailable Allergies Allergen (clinical drug ingredient) Drug/Non Drug Allergy documented on EMR Reaction Allergy Type Onset Date Status Sulfa Unknown Drug Allergy Active atorvastatin Lipitor Unknown Drug Allergy Acti ve Reason For Referral No Information Medications Medication SIG (Take, Route, Frequency, Duration) Notes Start Date End Date Status Multivitamin Adult 1 1 tablet Orally onc e a day Active metroNIDAZOLE 500 MG 1 tablet Orally Thr ee times a day for 7 days 03/14/2021 Active Restasis MultiDose 0.05 % 1 drop into af fected eye Ophthalmic Twice a day Active Glucosamine 1500 mg 1 capsule with a krystal l Orally bid Active Levaquin 500 MG 1 tablet Orally Once a day for 7 days 03/14/2021 Active Cinnamon 500 MG 1 Orally bid A ctive Ezetimibe 10 MG 1 tablet Orally Once a day for 30 day(s) Active Anti-Diarrheal 2 MG 1 tablet as needed Orally Four times a day/ as needed Active Calcium Magnesium ZINC 1 TABLET ORALLY t wice a day Active Atorvastatin Calcium 40 MG 1 tablet Oral ly Once a day for 30 day(s) Active Isosorbide Mononitrate 30 MG 1 tablet in the morning Orally Once a day for 30 day(s) Active Chondroitin Sulfate 1200 mg 1 tablet Ora lly twice a day Active amLODIPine Besy-Benazepril HCl 2.5-10 MG as directed Orally Active MSM 1000 MG 1 Orally QD Active Co Enzyme Q-10 200 mg 1 tablet orally tw ice a day Active Vitamin D3 25 MCG (1000 UT) 1 capsule Or ally Once a day for 30 day(s) Active Lutein 20 MG 1 capsule with a krystal l Orally Once a day Active Lomotil 2.5-0.025 MG 1 tablet as needed Orally Four times a day for diarrhea for 10 days 11/21/2017 Active Levothyroxine Sodium 100 MCG 1 tablet Or ally Once a day Active Toprol XL 25 MG 1 tablet Orally Once a day for 30 day(s) Active Salyer 3 950 mg 1capsule Orally BID Active Aspirin 81 81 MG 1 tablet Orally Once a day for 30 day(s) Active Immunizations Vaccine Route Administration Date Status Comme nts Influenza Unknown 07/07/2015 Administered Influenza Unknown 07/07/2016 Administered Influenza Unknown 06/25/2018 Administered Influenza Unknown 06/07/2019 Administered Influenza Unknown 07/07/2020 Administered Influenza Unknown 07/25/2021 Administered Social History Alcohol Screen Question Answer Notes Did you have a drink containing alcohol in the p ast year? No Points 0 Interpretation Negative Section Notes: Nonsmoker > 10 yrs; occ. EtO H Nonsmoker > 10 yrs; occ. EtO H Nonsmoker > 10 yrs; occ. EtO H Nonsmoker > 10 yrs; occ. EtO H Nonsmoker > 10 yrs; occ. EtO H Nonsmoker > 10 yrs; occ. EtO H Nonsmoker > 10 yrs; occ. EtO H Nonsmoker > 10 yrs; occ. 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 Plan Of Treatment Pending Test Test Name Order Date STOOL WBC 06/27/2020 CULTURE, STOOL 06/27/2020 TSH REFLEX FREE T4 12/02/2017 OCCULT BLOOD STOOL 06/27/2020 Future Test Test Name Order Date COLONOSCOPY 06/25/2019 Next Appt Details Provider Name:Edwin ordaz Jr, 03/26/2025 09:20:00 AM, [address] [place] [address], [address], [place], [address], Insurance Providers Payer Name Payer Address Payer Phone Subscriber Number Group Number Insured Name Patient Relationship to Insured Coverage Start Date Coverage End Date MEDICARE OF LOIS [address] [place] [address] [id number] SUNDAY ABARCA Self - patient is the insured FOR LIFE [address] [place] [address] [id number] SUNDAY ABARCA Self - patient is the insured Medical (General) History Medical History History ICD Code colonoscopy 08/05/19, normal including b iopsies. Diverticulitis in 03/2016--treated with I V antibiotics--uncomplicated Elevated cholesterol Hyperthyroidism--s/p radioactive iodine ablation Osteopenia Colonoscopies in 2006 and 2009 negative for polyps--done by Dr. Kaur prediabetic Lung nodule Coronary artery disease with history of TX 02/23, Dr. Durham Surgical History Surgery Date(Month/Year) prostatectomy in 2004 for cancer vocal cord polyps removed on three separate occasions--sees --had an exam in 05/2016--told of GERD-induced sx and started on Tagamet ankle fracture,right tonsillectomy carpal tunnel repair on the right ingrown toenail removed hemorrhoids removed twice penile inplant Right shoulder surgery x2 CABG x3 02/2020 Salivary gland surgery Hospitalization History Reason Date(Month/Year) diverticulitis 2020
--- OUTSIDE RECORDS SUMMARY | 2025-01-12 07:43 | XMS_ITS ---
Author Organization [facility] Address [address] [facility] [address] [place] [address] Care Team Providers Care Secretary Bookkeeper Name Role Phone Alexandra CORMIER, Dawit Primary Care Provider Edwin Milligan Jr REASON FOR VISIT intestinal issues Encounters Encounter Location Date Provider Diagnosis [facility] [address] [place] [address] [place] [address] 09/23/2023 Edwin Kaur Jr Plan Of Treatment Next Appt Details Provider Name:Edwin ordaz Jr, 03/26/2025 09:20:00 AM, [address] [place] [address], [address], [place], [address], Progress Notes * SUNDAY LOPEZ LDOB: (79 yo M)Acc No.[id number]:09/23/2023 Progress Notes Patient:?ELSALEODANJIM Provider:?Edwin Kaur MD :1945???Age:77 Y???Sex:Male Param e:09/23/2023 Address:[address] [place] Pcp:Dawit Morris MD Subjective: * Chief Complaints: * ???1. Intestinal issues. * Medical History:? Objective: * Vitals:? Assessment: Plan: * Treatment: * * The named appointment provid er may or may not be the originator of this progress note, and it is not deemed complete until electronically signed by the appointment provider. Sign off status: Pending * Provider:?Edwin Kaur MD Date:?1 11/24/2022 Generated for Zully bell/Ferny/Kayla on:?01/12/2025 07:42 AM EDT
--- NOTE | 2025-01-12 07:44 | CA_ITS ---
Acquisition Time: 2025-01-12 07:55:31 Total Exercise Time: 00:05:03 Test Indications: CAD Medications: SEE H&P Protocol: SANTA Max HR: 137 BPM 96% of Pred: 142 BPM Max BP: 180/60 mmHG Max Work Load: 6.5 METS Exercise Stress Test with exercise 5 mins 3 secs of Santa Protocol with reduced speed to 2.2mph at the last minute, achieving 96% MPHR, with reports of severe SOB, no chest pain, with isolated PACs and PVCs, with normotensive response to exercise. Without EKG changes meeting criteria for ischemia. In recovery, breathing retruned to baseline. Nuclear images pending. Test reviewed with Dr. Maurice. Referred By: Kevin Durham Electronically Signed By: Michael Castaneda
== END ==
LOC: HO.CARD 07:39
PROVIDERS: PCP Family Medicine; Visit Provider Internal Medicine Cardiovascular Disease
DX: I25.10 Atherosclerotic heart disease of native coronary artery without angina pectoris (principal)
CPT/HCPCS: 78452; 93017; A9500

== ENCOUNTER → 2025-01-12 07:44 | Outpatient (BNV) | payer MEDICARE, OTHER, SELFPAY | PROVIDERS: PCP Family Medicine | DX: R06.02 Shortness of breath (principal); I49.1 Atrial premature depolarization; I49.3 Ventricular premature depolarization | CPT/HCPCS: 78452; 93016; 93018 ==

== ENCOUNTER 2025-02-04 12:30 | Outpatient (AMB) | payer MEDICARE, OTHER, SELFPAY ==
--- NOTE | 2025-02-04 12:38 | A.OFFVIS_ITS ---
Vital Signs 02/04/25 12:39 Height 6 ft Weight 176 lb 5.917 oz BMI 23.9 BP 110/66 Blood Pressure Location Lt brachial Position Sitting Pulse 59 Intake Visit Reasons: 1 yr f/up s/p mibi Intake Note: 1 year follow-up with ekg hearts doing ok City Route Driver Required: No Allergies Sulfa (Sulfonamide Antibiotics) [SULFA (SULFONAMIDE ANTIBIOTICS)] Allergy (Unknown, Verified 09/22/24 10:59) UNKNOWN Sulfa Allergy (Mild, Uncoded 09/22/24 10:59) sinus problems Medication List - Last Reconciled 02/04/25 by Kevin Durham MD amlodipine 5 mg PO DAILY antiox.mv no.40-zkmx4c-hvmywdr9o-gxp-ogv 280-10-2 mg caps PO aspirin (Adult Low Dose Aspirin) 81 mg PO DAILY atorvastatin 40 mg PO DAILY calcium carb-mag ox-zinc gluc 333-133-5 mg tabs PO cholecalciferol (vitamin D3) 25 mcg PO DAILY [cinnomin bark PO] coenzyme Q10 (CoQ-10) 100 mg PO DAILY ezetimibe 10 mg PO DAILY verk-tiyodq-thr#8-K-lqba-boron 030-474-62-1-3 mg tabs PO isosorbide mononitrate ER 30 mg PO DAILY levothyroxine 100 mcg PO DAILY metoprolol succinate ER 25 mg PO DAILY 90 days multivitamin (Daily Multi-Vitamin tablet) 1 tab PO DAILY omega-3 fatty acids 2,000 mg PO DAILY HPI Comments Details: Fernie comes for follow-up. He recently underwent a myocardial perfusion imaging which at moderate workload showed no evidence of ischemia. He continues to walk about 6-8 miles a day at a good pace and has no symptoms of exertional chest pain or shortness of breath. Denies any prolonged palpitation irregular heartbeat. Takes all his medications. I do not have any copy of his recent lipid panel. [facility] Medical History HTN (hypertension) Hyperlipidemia CAD (coronary artery disease) Surgical History S/P CABG x 3 History of carpal tunnel release History of ankle surgery Hx of tonsillectomy Hx of colonoscopy Hx of cardiac cath Family History Father CVD (cardiovascular disease) Mother No problems noted. Social History Alcohol intake: never Patient Tobacco Use Status: Former Tobacco user Review of Systems Const Denies chills, Denies fatigue, Denies fever(s), Denies frequent falls, Denies weakness, Denies weight gain and Denies weight loss ENT Denies dizziness Card Denies chest pain, Denies leg edema, Denies lightheadedness, Denies palpitations, Denies dyspnea, Denies dyspnea on exertion, Denies orthopnea and Denies other (loss of consciousness) Resp Denies cough, Denies dyspnea and Denies dyspnea on exertion GI Denies hematochezia and Denies change in stool character Musc Denies abnormal gait, Denies muscle weakness, Denies numbness, Denies radiating pain into limb and Denies tingling Neuro Denies abnormal gait, Denies dizziness, Denies frequent falls, Denies numbness, Denies tingling and Denies weakness Endo Denies fatigue and Denies palpitations Physical Exam Vital Signs: Last Vital Signs Pulse 59 02/04/25 12:39 BP 110/66 02/04/25 12:39 BMI result Body Mass Index 23.9 Repeat blood pressure, right arm at to 124/62 and left arm at 128/64 Const General: cooperative, comfortable, no acute distress, alert, awake and anxious Nutritional Appearance: average body habitus Orientation/consciousness: patient oriented x3 Limitations: no limitations Neck Neck: Yes trachea midline, Yes supple and Yes no JVD Chest Chest palpation & inspection: normal inspection of the chest Resp Effort & Inspection: normal respiratory effort Auscultation: clear to auscultation bilaterally Cardio Jugular venous distension: no JVD Palpation: normal PMI Rate: regular rate Rhythm: regular rhythm Heart sounds: S1 normal heart sound present and S2 normal heart sound present GI Auscultation: normal bowel sounds Skin General skin exam: no rashes or lesions noted Neuro General: patient oriented x3 and no focal motor deficits Extrem General: Yes no clubbing, cyanosis or edema Psych Appearance: grossly normal Affect: Anxious affect present Office Procedures EKG Details: EKG shows normal sinus rhythm with first-degree AV block with T-wave changes inferior leads suggestive of repolarization abnormality [id number], Complete Assessment & Plan Assessment & Plan (1) CAD (coronary artery disease): Code(s): I25.10 - Atherosclerotic heart disease of belkofski coronary artery without angina pectoris Category: Medical Plan: CAD with remote coronary artery bypass grafting with recent myocardial perfusion imaging within normal limits suggestive of patent graft. He was no symptoms currently. Continue aggressive medical therapy. Continue low-dose aspirin t herapy for life. Discussed with him about medical therapy with statins. Target goal LDL less than 70 mg/dL. Do not have a copy of his most recent lipid panel. Will contact your office for the same otherwise should follow lipid panel at least on annual basis. Continue aggressive blood pressure control which is currently well optimized. Encouraged to continue to participate in physical activity as tolerated. (2) HTN (hypertension): Code(s): I10 - Essential (primary) hypertension Category: Medical Plan: Hypertension which is currently well optimized advised to monitor blood pressure at home maintain a log. Goal blood pressure less than 130/84. Low-salt diet was discussed. Importance of good medical therapy was discussed. Continue maintain activity level as tolerated. Follow up in the clinic in 1 year's time, sooner p.r.n.. Thank you for allowing me to partake in his care Coding Level of Care Code Est Pt Level 4 (15415) Complex EM visit Add On G2211 Diagnoses CAD (coronary artery disease) I25.10 HTN (hypertension) I10 CPT Codes EKG - CPT: 36277-Fhjrkowrzxpwghdvn, Complete ([id number])
[2025-02-04 12:39] VITALS: BP 110/66; PULSE 59; BMI 23.9
--- OUTSIDE RECORDS SUMMARY | 2025-02-04 14:41 | XMS_ITS | Patient Health Record ---
Author Organization [facility] Fielding Address [address] [place] [address] Care Team Providers Care Label Printer Name Role Phone Alexandra CORMIER, Dawit Primary Care Provider Donte Ramos Unavailable [phone] Allergies Allergen (clinical drug ingredient) Drug/Non Drug Allergy documented on EMR Reaction Allergy Type Onset Date Status sulfa rash Drug Allergy Active Penicillin rash Drug Allergy Active Reason For Referral No Information Medications Medication SIG (Take, Route, Frequency, Duration) Notes Start Date End Date Status [place] 3 1200 MG 1 capsule Orally Onc [...] Status Risk Notes Problem Contusion of toe (23919068) Contusion of toe (924.3) Active confirmed Problem Pain in limb (42231437) Pain in Limb (729.5) Active confirmed Problem Subungual hematoma (569334328) Subungual Hematoma (924.9) Active confirmed Plan Of Treatment Pending Test Test Name Order Date X ray : Foot, right 3V 02/02/2013 [id number] SKIN/TISSUE 02/16/2013 [id number]. Subungual Hematoma 3 Insurance Providers Payer Name Payer Address Payer Phone Subscriber Number Group Number Insured Name Patient Relationship to Insured Coverage Start Date Coverage End Date Medicare National Govt Svcs Inc [address] [place] [phone] [id number] BourguiFernie sanchez Self - patient is the insured for Life [address] [place] [address] [id number] Fernie Morse Self - patient is the insured Medical (General) History Medical History History ICD Code carpal tunnel hemorrhoids broken bones colitis lyme disease diabetic thyroid disorder chronic sinusitis measles chicken pox Surgical History Surgery Date(Month/Year) tonsillectomy ankle surgery carpal tunnel surgery vocal cords shoulder surgery prostatectomy penile prosthesis colonoscopy
== END 2025-02-04 12:56 | disposition home or self-care (01) ==
LOC: HO.HCS 12:31
PROVIDERS: PCP Family Medicine; Visit Provider Internal Medicine Cardiovascular Disease
DX: I25.10 Atherosclerotic heart disease of native coronary artery without angina pectoris (principal); I10 Essential (primary) hypertension
CPT/HCPCS: 93010; 99214; G2211

== ENCOUNTER → 2025-02-04 12:30 | Outpatient (BNVA) | payer MEDICARE, OTHER, SELFPAY | PROVIDERS: PCP Family Medicine; Visit Provider Internal Medicine Cardiovascular Disease | DX: I25.10 Atherosclerotic heart disease of native coronary artery without angina pectoris (principal); I10 Essential (primary) hypertension | CPT/HCPCS: 93005; 99212 ==

== ENCOUNTER 2025-08-25 14:08 | Outpatient (AMB) | payer MEDICARE, OTHER, SELFPAY ==
[2025-08-25 14:29] VITALS: BP 130/78; PULSE 82; RESP 16; TEMP 36.8; O2SAT 96; BMI 24.3
--- NOTE | 2025-08-25 14:29 | AM.OFFWIN_ITS ---
Intake Vital Signs 08/25/25 14:29 Height 6 ft Weight 179 lb BMI 24.3 BP 130/78 Blood Pressure Location Lt brachial Position Sitting Respiration 16 Pulse 82 Pulse Source Pulse Oximeter Temp 98.3 F Temp Source Oral Pulse Oximetry (%) 96 Oxygen Delivery Method Room Air Intake Visit Reasons: EP stomach cramps for 4 days Intake Note: Patient is coming in with abdominal pain x4 days. No Diarrhea Patient Tobacco Use Status: Former Tobacco user Accompanied by: Self / Same As Patient Allergies Sulfa (Sulfonamide Antibiotics) (SULFA (SULFONAMIDE ANTIBIOTICS)) Allergy (Unknown, Verified 08/25/25 14:30) UNKNOWN Sulfa Allergy (Mild, Uncoded 08/25/25 14:30) sinus problems Do you need a note to return to daycare/school/sports/work: No HPI HPI Comments History of Present Illness Details History of Present Illness - The patient is a 79-year-old male pres enting with abdominal cramping and liquid bowel movements. - Abdominal cramping began four to five days ago, with no relief from Dicyclomine, and is described as cramping along the beltline. - The patient has a history of diverticu litis, with current symptoms differing from previous experiences. - Bowel movements are liquid, almost angela er-like, with no associated diarrhea, blood, or mucus. 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 - He denies fever, chills, back pain, he maturia, dysuria, melena, hematochezia, mucous in the stools. - He has no recent travel or sick contac ts. Physical Exam General: Cooperative, healthy appearing, comfortable, no acute distress and well developed Orientation: Patient oriented x3 Respiratory: Normal respiratory effort and able to speak in complete sentences. Clear to auscultation bilaterally Cardiovascular: Regular rate and rhythm. Normal S1 and S2 GI: Normal to inspection. Hypoactive BS noted. Soft to palpation and nontender, non-distended. TTP of the LLQ. Mild guarding noted. Skin: No rashes or lesions noted Patient was informed and verbally consented to the use of an ambient scribe for clinic note documentation during this visit [facility] Medical History HTN (hypertension) Hyperlipidemia CAD (coronary artery disease) Surgical History S/P CABG x 3 History of carpal tunnel release History of ankle surgery Hx of tonsillectomy Hx of colonoscopy Hx of cardiac cath Family History Father CVD (cardiovascular disease) Mother No problems noted. Social History Alcohol intake: never Patient Tobacco Use Status: Former Tobacco user Review of Systems Const All systems reviewed & are unremarkable except as noted in HPI and below Physical Exam Vital Signs: Last Vital Signs Temp 98.3 F 08/25/25 14:29 Pulse 82 08/25/25 14:29 Resp 16 08/25/25 14:29 BP 130/78 08/25/25 14:29 Pulse Ox 96 08/25/25 14:29 Oxygen Delivery Method Room Air 08/25/25 14:29 BMI result Body Mass Index 24.3 Assessment & Plan Assessment & Plan (1) Abdominal cramping: Code(s): R10.9 - Unspecified abdominal pain Plan Most likely cramps due to diverticulosis vs diverticulitis vs H pylori vs gastroenteritis plan - Perform H. pylori breath test to rule out infection. - Conduct blood work to investigate symptoms further. - Monitor bowel movement consistency and frequency. - Consider dietary modifications if symptoms persist. - Continue with dicyclomine as prescribed for cramping - follow up with PCP Orders: Orders Complete Blood Count Auto Diff Today R10.9 - Unspecified abdominal pain Comprehensive Met. Panel Today R10.9 - Unspecified abdominal pain H Pylori Breath Test Today R10.9 - Unspecified abdominal pain Coding Level of Care Code Est Pt Level 4 (85448) Diagnoses Abdominal cramping R10.9
--- OUTSIDE RECORDS SUMMARY | 2025-08-26 02:31 | XMS_ITS | Patient Health Record ---
Author Organization [facility] Address [address] [place] [id number] Care Team Providers Care Wood Chopper Name Role Phone Alexandra (RETIRED) Dawit CORMIER Primary Care Prov ider Edwin Guillen Jr Unavailable Allergies Allergen (clinical drug ingredient) Drug/Non Drug Allergy documented on EMR Reaction Allergy Type Onset Date Status atorvastatin Lipitor Unknown Drug Allergy Acti ve Sulfa Unknown Drug Allergy Active Reason For Referral No Information Medications Medication SIG (Take, Route, Frequency, Duration) Notes Start Date End Date Status Multivitamin Adult 1 Tablet 1 tablet Ora lly once a day Active metroNIDAZOLE 500 MG Tablet 1 tablet Ora lly Three times a day; Duration: 7 days 03/14/2021 Active Restasis MultiDose 0.05 % Emulsion 1 drop into affected eye Ophthalmic Twice a day Active Glucosamine 1500 mg Capsule 1 capsule wi th a meal Orally bid Active Levaquin 500 MG Tablet 1 tablet Orally O nce a day; Duration: 7 days 03/14/2021 Active Cinnamon 500 MG Capsule 1 Orally bid Active Ezetimibe 10 MG Tablet 1 tablet Orally O nce a day; Duration: 30 day(s) Active Anti-Diarrheal 2 MG Tablet 1 tablet as n eeded Orally Four times a day/ as needed Active Calcium Magnesium ZINC 1000 MG-400-25MG 1 TABLET ORALLY twice a day Active Atorvastatin Calcium 40 MG Tablet 1 tablet Orally Once a day; Duration: 30 day(s) Active Isosorbide Mononitrate 30 MG Tablet Extended Release 24 Hour 1 tablet in the morning Orally Once a day; Duration: 30 day(s) Active Chondroitin Sulfate 1200 mg Capsule 1 tablet Orally twice a day Active amLODIPine Besy-Benazepril HCl 2.5-10 MG Capsule as directed Orally Active MSM 1000 MG Capsule 1 Orally QD Active Co Enzyme Q-10 200 mg tablet 1 tablet or ally twice a day Active Vitamin D3 25 MCG (1000 UT) Capsule 1 capsule Orally Once a day; Duration: 30 day(s) Active Lutein 20 MG Capsule 1 capsule with a me al Orally Once a day Active Lomotil 2.5-0.025 MG Tablet 1 tablet as needed Orally Four times a day for diarrhea; Duration: 10 days 11/21/2017 Active Levothyroxine Sodium 100 MCG Tablet 1 tablet Orally Once a day Active Toprol XL 25 MG Tablet Extended Release 24 Hour 1 tablet Orally Once a day; Duration: 30 day(s) Active [place] 3 950 mg Capsule 1capsule Orally BID Active Aspirin 81 81 MG Tablet Delayed Release 1 tablet Orally Once a day; Duration: 30 day(s) Active Immunizations Vaccine Route Administration Date Status Comme nts Influenza Unknown 07/07/2015 Administered Influenza Unknown 07/07/2016 Administered Influenza Unknown 06/25/2018 Administered Influenza Unknown 06/07/2019 Administered Influenza Unknown 07/07/2020 Administered Influenza Unknown 07/25/2021 Administered Social History Social History Drugs/Alcohol: Social Info Question Answer Notes Alcohol Screen Did you have a drink containing alcohol in the past year? No Points 0 Interpretation Negative Additional Details Category Social Info Options Details Miscellaneous: Marital status: Occupation: retired Section Notes: Nonsmoker > 10 yrs; occ. [...] Problem Status W/U Status Risk Notes Problem Diverticulitis of colon (265489758) Diverticulitis of large intestine without perforation or abscess without bleeding (K57.32) Active confirmed Problem Change in bowel habit (62932368) Change in bowel habit (R19.4) Active confirmed Problem Irritable bowel syndrome with diarrhea (467923895) Irritable bowel syndrome with diarrhea (K58.0) Active confirmed Problem Microscopic colitis (066188287) Other microscopic colitis (K52.89) Active confirmed Encounters Encounter Location Date Provider Diagnosis [facility] [address] [place] [address] 03/24/2025 Edwin Kaur Jr Plan Of Treatment Pending Test Test Name Order Date STOOL WBC 06/27/2020 CULTURE, STOOL 06/27/2020 TSH REFLEX FREE T4 12/02/2017 OCCULT BLOOD STOOL 06/27/2020 Future Test Test Name Order Date COLONOSCOPY 06/25/2019 Insurance Providers Payer Name Payer Address Payer Phone Subscriber Number Group Number Insured Name Patient Relationship to Insured Coverage Start Date Coverage End Date MEDICARE OF LOIS [address] [facility] [address] [id number] BOURGUIG TONEYSUNDAY Self - patient is the insured FOR LIFE [address] [place] [address] [id number] BOURGUIElayne SUNDAY ZIEGLER Self - patient is the insured Medical (General) History Medical History History ICD Code colonoscopy 08/05/19, normal including b iopsies. Diverticulitis in 03/2016--treated with I V antibiotics--uncomplicated Elevated cholesterol Hyperthyroidism--s/p radioactive iodine ablation Osteopenia Colonoscopies in 2006 and 2009 negative for polyps--done by Dr. Kaur prediabetic Lung nodule Coronary artery disease with history of LA 02/23, Dr. Durham Surgical History Surgery Date(Month/Year) [...]
--- OUTSIDE RECORDS SUMMARY | 2025-08-26 02:31 | XMS_ITS | Patient Health Record ---
[facility] [place] Address [address] [place] [address] Care Team Providers Care Internal Wholesaler Name Role Phone Alexandra CORMIER, Dawit Primary Care Provider Donte Singletary Unavailable [phone] Allergies Allergen (clinical drug ingredient) Drug/Non Drug Allergy documented on EMR Reaction Allergy Type Onset Date Status sulfa rash Drug Allergy Active Penicillin rash Drug Allergy Active Reason For Referral No Information Medications Medication SIG (Take, Route, Frequency, Duration) Notes Start Date End Date Status [place] 3 1200 MG 1 capsule Orally Onc e a day; Duration: 30 day(s) Active Coenzyme Q-10 200 MG 1 capsule with a me al Orally Once a day; Duration: 30 day(s) Active Cipro 500 MG 1 tablet Orally ever y 12 hrs; Duration: 10 day(s) 02/02/2013 Active Acidophilus/Pectin 100 MG as directed Orally Active Vitamin D 1000 UNIT 1 tablet Orally Once a day; Duration: 30 day(s) Active Levothyroxine Sodium 112 MCG 1 tablet on an empty stomach in the morning Orally Once a day; Duration: 30 day(s) Active Pravastatin Sodium 80 MG 1 tablet Orally Once a day; Duration: 30 day(s) Active Asacol 400 MG 1 tablet Orally Four times a day; Duration: 30 day(s) Active Lutein 20 MG 1 capsule with a krystal l Orally Once a day; Duration: 30 day(s) Active Cinnamon 500 MG as directed Orally Active Glucosamine 500 MG 1 capsule with a krystal l Orally Once a day; Duration: 30 day(s) Active Chondroitin Sulfate 400 MG as directed Orally Active Problems Problem Type SNOMED Code ICD Code Onset Dates Problem Status W/U Status Risk Notes Problem Contusion of toe (96546478) Contusion of toe (924.3) Active confirmed Problem Pain in limb (35859400) Pain in Limb (729.5) Active confirmed Problem Subungual hematoma (800541587) Subungual Hematoma (924.9) Active confirmed Plan Of Treatment Pending Test Test Name Order Date X ray : Foot, right 3V 02/02/2013 [id number] SKIN/TISSUE 02/16/2013 [id number]-Tila. Subungual Hematoma 3 Insurance Providers Payer Name Payer Address Payer Phone Subscriber Number Group Number Insured Name Patient Relationship to Insured Coverage Start Date Coverage End Date Medicare National [employer] [address] [place] [address] [id number] BourguiFernie sanchez Self - patient is the insured [facility] for Life [address] [place] [id number] Fernie Morse Self - patient is the insured Medical (General) History Medical History History ICD Code carpal tunnel hemorrhoids broken bones colitis lyme disease diabetic thyroid disorder chronic sinusitis measles chicken pox Surgical History Surgery Date(Month/Year) tonsillectomy ankle surgery carpal tunnel surgery vocal cords shoulder surgery prostatectomy penile prosthesis colonoscopy
== END 2025-08-25 16:16 | disposition home or self-care (01) ==
PROVIDERS: PCP Family Medicine; Visit Provider Physician Assistant Medical
DX: R10.9 Unspecified abdominal pain (principal)

== ENCOUNTER 2025-08-25 14:08 | Outpatient (REF) | payer MEDICARE, OTHER, SELFPAY ==
[2025-08-25 16:23] LABS: MANUAL DIFF FLAG NO
[2025-08-25 17:00] LABS: Hematocrit 48.0 % (42.0-52.0); Hemoglobin 16.4 g/dl (14.0-18.0); Imm Gran Abs Auto 0.05 X10*3/uL (0.00-0.03); Imm Gran Pct Auto 0.3 % (0.0-0.4); Lymphocytes Absolute Auto 2.4 X10*3/uL (1.2-4.9); Mean Corpuscular HGB Conc 34.2 g/dl (31.0-36.0); Mean Corpuscular Hemoglobin 32.5 pg (27.0-33.0); Mean Corpuscular Volume 95.0 fL (80.0-98.0); NRBC Abs Auto 0.000 X10*3/uL (0.0-0.012); NRBC Pct Auto 0.0 /100WBC (0.0-0.2); Platelet Count 232 X10*3/uL (160-400); Red Blood Count 5.05 X10*6/uL (4.60-5.80); White Blood Count 14.4 X10*3/uL (4.8-10.8)
[2025-08-25 17:14] LABS: Alanine Aminotransferase 25 U/L (0-40); Albumin Level 5.1 g/dL (3.5-5.0); Alkaline Phosphatase 53 U/L (39-117); Anion Gap 14 (12-20); Aspartate Amino Transferase 31 U/L (5-37); Blood Urea Nitrogen 17 mg/dL (9-16); Calcium 10.3 mg/dL (8.4-10.2); Carbon Dioxide 25 mmol/L (22-29); Chloride 105 mmol/L (96-108); Estimated Glomerular Filt Rate > 60; Potassium 4.6 mmol/L (3.3-5.1); Sodium 139 mmol/L (135-145); Total Protein 8.3 g/dL (6.5-8.0)
== END 2025-08-25 14:09 | disposition home or self-care (01) ==
LOC: HO.LAB 14:08
PROVIDERS: PCP Family Medicine; Visit Provider Physician Assistant Medical
DX: R10.32 Left lower quadrant pain (principal)
CPT/HCPCS: 36415; 80053; 83013; 85025; 99212